=== PATIENT | female | born 1930 | race Caucasian/White ===

== ENCOUNTER 2016-07-31 11:58 | Emergency (ER) | payer MEDICARE, OTHER ==
[~2016-07-31] VITALS: Ht 172.7 cm; Wt 88.6 kg
[2016-07-31 12:24] VITALS: BP 122/46; PULSE 87; RESP 16; O2SAT 99
[2016-07-31] MEDS ORDERED: LISI-571 PO (12:33)
[2016-07-31] MEDS ORDERED: EYE VITAMINS PO (12:33)
[2016-07-31] MEDS ORDERED: NAPR220C11 PO (12:33)
--- NOTE | 2016-07-31 12:37 | ED.REPORT ---
HPI-Abd Pain F 40 and Over Date of Service Jul 31, 2016 ED Provider: Angelo Ochoa MD Pt is an 85 y/o female presenting to the ED with her daughter c/o intermittent abdominal pain which occurred early this morning. The patient was laying in bed and was awoken by pain which started in her low abdomen and radiated all the way to her throat with an associated acid taste which caused a burning sensation. Her pain is exacerbated by laying down. The patient had a bowl of soup and a potato for dinner last night. She c/o associated nausea, decreased appetite. She denies fever, chills, current abdominal pain, bloody stool, melena , CP, SOB, cough. She has no diagnosed history of GERD. The patient takes Aleve daily for general pain. Nursing Notes Stated Complaint: ABDOMINAL PAIN Chief Complaint: Female Abdominal Pain Nursing Notes Reviewed: Yes Allergies: Coded Allergies: Penicillins (Verified Allergy, Intermediate, Hives, 07/31/16) aspirin (Verified Allergy, Intermediate, Rash, 07/31/16) Scheduled ([otc eye vitamins]) Unknown Strength Unknown Dose PO BID Lisinopril (Lisinopril) 5 Mg Tablet 5 MG PO DAILY Naproxen Sodium (Aleve) 220 Mg Capsule 220 MG PO BIDAC Pantoprazole DR (Pantoprazole DR) 40 Mg Tablet.dr 40 MG PO DAILY General Time Seen by MD: 12:03 Chief Complaint Abdominal pain Hx Obtained From: Patient Arrived By: Walk-in Sudden in Onset?: No Onset Occurred: 5 - 8 hours ago Symptom Duration: Intermittent Progression since Onset: Resolved Location: : Diffuse Quality: Burning Severity: Current: No pain currently Severity: Maximum: Moderate Similar Sx Previous: No Past Medical History Past Medical History Hypertension Past Surgical History None reported Smoking History Never Smoker Social History Alcohol Use: Denies alcohol use Drug Use: Denies drug use Ambulatory Status Independent Review of Systems Constitutional: Denies: Chills, Fever Respiratory: Denies: Non-productive cough, Shortness of breath Cardiovascular: Denies: Chest pain GI: Reports: Abdominal pain, Nausea, Denies: Bloody/tarry stool, Diarrhea, Melena, Vomiting Complete sys rev & neg: except as marked. Physical Exam Vital Signs Vital Signs (First) Date Time Temp Pulse Resp B/P Pulse Ox O2 Delivery O2 Flow Rate FiO2 07/31/16 12:24 35.8 87 16 122/46 99 Room Air Initial VS: Reviewed Head / Eyes: Atraumatic, Normocephalic, PERRL ENT: Mucous membranes moist, Conjunctiva normal, No scleral icterus Neck: Supple, Full range of motion Extremities: Vascular intact, Neuro intact, No swelling, No tenderness Skin: Warm, Dry, No cyanosis Neurologic: Alert, Oriented, Nonfocal Psychiatric: Mood/affect normal, Behavior normal, Normal thought content General/Constitutional: Awake, Alert, No acute distress, Well appearing, Cooperative, Not toxic appearing Respiratory / Chest: Atraumatic, Breath sounds NL, Breath sounds = bilat, No respiratory distress, No rales, No rhonchi, No wheezing, No retractions, No stridor, No chest tenderness, No chest wall deformity, No crepitus Cardiovascular: Heart rate NL, Regular rhythm, Heart sounds NL, No gallop, No murmurs, No rubs, Cap refill not delayed, Peripheral circulation NL Symmetric pitting edema bilateral lower extremities extending to the knees Abdomen: Atraumatic, Soft, Non-tender, McBurney's non-tender, No guarding, No rebound, No distention, No palpable mass Tenderness/Guarding/Rebound: Negative: Tender epigastric Back: Full range of motion, Painless range of motion Interpretation & Diagnostics ECG Interpretation ECG Interpretation: Sinus rhythm rate 75 LAD RBBB No prior available for comparison Time: 13:33 Interpreted by: ED physician Normal ECG Interpretation: No acute ischemic changes Re-Eval/Medical Decision Med Decision/Clinical Course The patient is a remarkably healthy 85-year-old female presenting to the emergency department from urgent care where she is complained of epigastric abdominal pain that radiated up into her throat and was associated with metallic /burning sensation in her throat and mouth. This was reproducible with laying flat and resolved with sitting up. Here in the emergency department the patient is afebrile with stable vital signs and in no apparent distress. She reports that she is symptom-free with sitting up. The overall presentation is highly convincing for acid reflux. The fact that the pain was reproducible with laying flat and associated with acidic taste in the mouth is highly suggestive of acid reflux. The pain is not exertional in nature and the nature of the pain is not suggestive of acute coronary syndrome. EKG was obtained and interpreted by myself as documented above and demonstrated no acute ischemic changes. Insert normal chest x-ray. Here in the emergency department the patient was treated with PO pantoprazole and had no ongoing symptoms. Of note, she has been taking nonsteroidal anti-inflammatories and I have recommended she discontinue these medications. Abdominal examinations were completely benign without any guarding, rigidity or rebound. I do not feel that laboratory or imaging studies are indicated at this time. The patient will follow up with her primary care physician. Lifestyle and dietary modifications were discussed in detail. If this time I feel she is appropriate for discharge home. Follow- up and return precautions were reviewed in detail with the patient as well as her daughter and they verbalized understanding and agreement with the plan. Re-Evaluation/Progress : Time of Eval: 12:45 Patient Status: Condition resolved, Complete relief, Pain resolved Re-Evaluation/Progress Note: Pt rechecked. Informed pt of plan for treatment. Pt understands and agrees with plan for treatment. F/U instructions and RTER warnings given. All questions addressed. Counseled Regarding: Diagnosis, Need for follow-up, When/why to return to ED Discharge & Departure Primary Impression: Acid reflux Esophagitis presence: esophagitis presence not specified Qualified Code: K21.9 - Gastro-esophageal reflux disease without esophagitis Additional Impressions: Epigastric abdominal pain NSAID induced gastritis Disposition: Home Discharge Condition All VS Reviewed: Yes Condition: Stable Patient Instructions: Gastroesophageal Reflux Disease (ED) Additional Instructions: Thank you for seeking care at the emergency room. It is difficult for us to make definitive diagnoses in the ED but we believe that you are experiencing acid reflux. Our primary goal today in the ED was to evaluate you for any life-threatening conditions. Your evaluation was reassuring. Your physical exam and interview are extremely consistent with acid reflux disease. You will be discharged with a prescription for Omeprazole. Take this once daily to help with acid reflux. Please stop taking your Aleve and Vitamin B12 until you are seen by your primary care provider. Aleve is known to cause irritation of the stomach and may be exacerbating your symptoms. You can take Tylenol as needed for pain. Do not exceed 2,000 mg in one day. Do not eat within 2-3 hours prior to bedtime. Elevation of your head should help your symptoms. You should follow-up with your primary doctor in the next week. You have also been referred to a test hole driller. Your primary care doctor may recommend you get an endoscopy which would be performed by gastroenterology. You should return to the ED immediately if you develop fevers, vomiting, worsening abdominal pain, shortness of breath, chest pain, lightheadedness, weakness or any other concerning signs or symptoms. Thank you for letting us partake in your care today. Referrals: Laz Mccullough MD (PCP) Stephon Rahman MD Attestation Portions of this note were transcribed by Blu Dia. I, Dr. Ochoa personally performed the history, physical exam and medical decision-making; I reviewed and confirmed the accuracy of the information in the transcribed note. Signed by Dale Clemons, 07/31/16 - 1300 copies to: Laz Mccullough MD, Beck O MD Jul 31, 2016 12:37 BLU DIA Jul 31, 2016 12:38
[2016-07-31] MEDS ORDERED: PANT40TA3 PO (12:55)
[2016-07-31] MEDS ORDERED: Alum-Mag Hydrox-Simeth 30 mL Suspension PO ONE (12:55)
[2016-07-31] MEDS ORDERED: Pantoprazole 40 mg ER24 Tablet PO ONE (12:55)
[2016-07-31 14:16] VITALS: BP 126/52; PULSE 97; RESP 16; O2SAT 98
== END 2016-07-31 14:23 | disposition home or self-care (01) ==
LOC: SED 11:58
DX: K21.9 Gastro-esophageal reflux disease without esophagitis (principal); R10.13 Epigastric pain; K29.70 Gastritis, unspecified, without bleeding; I10 Essential (primary) hypertension; Z88.0 Allergy status to penicillin; Z88.6 Allergy status to analgesic agent
CPT/HCPCS: 93005; 99284; G0463

== ENCOUNTER 2016-08-04 16:49 | Emergency (ER) | payer MEDICARE, OTHER ==
[~2016-08-04 16:49] MED LIST: EYE VITAMINS PO; LISI-571 PO; NAPR220C11 PO; PANT40TA3 PO
[2016-08-04 17:03] VITALS: BP 166/77; PULSE 63; RESP 16; O2SAT 97
--- NOTE | 2016-08-04 18:04 | ED.REPORT ---
HPI-Abd Pain F 40 and Over Date of Service Aug 04, 2016 ED Provider: Airam Garcia MD The patient is an 85 year old female with history of hypertension who presents to the ED complaining of lower abdominal pain for the last 6 nights. She describes her pain as aching reports that her pain is relieved by sitting up and exacerbated by laying down. Associated symptoms of decreased appetite and a bad taste in her mouth (which has resolved). She was seen in the ED four days ago and diagnosed with acid reflux. She typically takes Aleve daily but has stopped after the onset of her symptoms. She denies nausea, vomiting, diarrhea, constipation, melena, hematochezia, dysuria, hematuria, fever, or any other symptoms at this time. Nursing Notes Stated Complaint: LOWER ABDOMINAL PAIN Chief Complaint: Female Abdominal Pain Nursing Notes Reviewed: Yes Allergies: Coded Allergies: Penicillins (Verified Allergy, Intermediate, Hives, 07/31/16) aspirin (Verified Allergy, Intermediate, Rash, 07/31/16) Scheduled ([otc eye vitamins]) Unknown Strength Unknown Dose PO BID Cephalexin (Keflex) 500 Mg Capsule 500 MG PO QID Lisinopril (Lisinopril) 5 Mg Tablet 5 MG PO DAILY Naproxen Sodium (Aleve) 220 Mg Capsule 220 MG PO BIDAC Pantoprazole DR (Pantoprazole DR) 40 Mg Tablet.dr 40 MG PO DAILY General Time Seen by MD: 17:59 Chief Complaint Abdominal pain Hx Obtained From: Patient Arrived By: Walk-in Sudden in Onset?: No Onset Occurred: 6 days ago Symptom Duration: Waxes and wanes Location: : Abdomen lower Quality: Painful Severity: Current: Mild Severity: Maximum: Moderate Recent Healthcare: No recent hospitalization, Recent doctor visit, Prior workup Similar Sx Previous: No Past Medical History Past Medical History Hypertension Past Surgical History None reported Smoking History Never Smoker Social History Alcohol Use: Denies alcohol use Drug Use: Denies drug use Ambulatory Status Independent Review of Systems Decreased appetite Constitutional: Denies: Chills, Fever Respiratory: Denies: Non-productive cough, Shortness of breath Cardiovascular: Denies: Chest pain GI: Reports: Abdominal pain, Denies: Constipation, Diarrhea, Hematochezia, Melena, Nausea, Vomiting Female: Denies: Dysuria, Hematuria Complete sys rev & neg: except as marked. Physical Exam Vital Signs Vital Signs (First) Date Time Temp Pulse Resp B/P Pulse Ox O2 Delivery O2 Flow Rate FiO2 08/04/16 17:03 35.3 63 16 166/77 97 08/04/16 21:37 Room Air Initial VS: Reviewed Head / Eyes: Atraumatic, Normocephalic, PERRL ENT: Mucous membranes moist, Conjunctiva normal, No scleral icterus Neck: Supple, Non-tender, Full range of motion Extremities: Vascular intact, Neuro intact, No swelling, No tenderness Skin: Warm, Dry, No cyanosis Neurologic: Alert, Oriented, Nonfocal Psychiatric: Mood/affect normal, Behavior normal, Normal thought content General/Constitutional: Awake, Alert, No acute distress Respiratory / Chest: Atraumatic, Breath sounds NL, Breath sounds = bilat, No respiratory distress Cardiovascular: Heart rate NL, Regular rhythm, Heart sounds NL, No gallop, No murmurs, No rubs Abdomen: Atraumatic Tenderness/Guarding/Rebound: Positive: Tender LLQ... (Mild) Easily reduced umbilical hernia Back: Atraumatic Mild bilateral CVA tenderness Interpretation & Diagnostics Lab Results Interpretation Result Diagram: 08/04/16183908/04/161839 Test 08/04/16 18:40 08/04/16 20:40 White Blood Count 8.6th/mm3 (3.8-10.1) Red Blood Count 3.20mil/mm3 (3.90-5.20) Hemoglobin 10.5g/dL (12.0-15.6) Hematocrit 31.3% (35.0-46.0) Mean Corpuscular Volume 97.8fL (81-100) Mean Corpuscular Hemoglobin 32.8pg (27.0-35.0) Mean Corpuscular Hemoglobin Concent 33.5% (32.0-37.0) Red Cell Distribution Width 12.9% (12.3-15.4) Platelet Count 326bil/L (150-400) Neutrophils (%) (Auto) 85.3% (40-74) Lymphocytes (%) (Auto) 7.5% (14-46) Monocytes (%) (Auto) 6.8% (4-12) Eosinophils (%) (Auto) 0.1% (0-5) Basophils (%) (Auto) 0.1% (0-3) Sodium Level 136mEq/L (134-144) Potassium Level 5.9mEq/L (3.5-5.2) Chloride Level 101mEq/L (97-108) Carbon Dioxide Level 21mmol/L (18-29) Blood Urea Nitrogen 40mg/dL (8-27) Creatinine 0.83mg/dL (0.57-1.00) Estimat Glomerular Filtration Rate 93mL/min (>59) Glucose Level 125mg/dL (60-99) Lactic Acid Level 0.9mmol/L (0.4-2.0) Calcium Level 9.5mg/dL (8.5-10.1) Magnesium Level 1.8mg/dL (1.6-2.6) Total Bilirubin 0.2mg/dL (0.0-1.2) Aspartate Amino Transf (AST/SGOT) 34U/L (0-50) Alanine Aminotransferase (ALT/SGPT) 17U/L (0-32) Alkaline Phosphatase 133U/L (25-165) Total Protein 7.1g/dL (6.4-8.4) Albumin 3.9g/dL (3.4-5.0) Lipase 76U/L (13-60) Urine Color Yellow (YELLOW) Urine Appearance Hazy (CLEAR,HAZY) Urine pH 5.0 (5.0-8.0) Urine Specific [place] 1.015 (1.003-1.035) Urine Protein Negativemg/dL (NEG,TRACE) Urine Glucose (UA) Negativemg/dL (NEGATIVE) Urine Ketones Negativemg/dL (NEGATIVE) Urine Occult Blood Negative (NEGATIVE) Urine Nitrite Negative (NEGATIVE) Urine Bilirubin Negative (NEGATIVE) Urine Urobilinogen Normalmg/dL (NORMAL) Urine Leukocyte Esterase Moderate (NEGATIVE) Urine RBC 0-2/hpf (0-2) Urine WBC 6-10/hpf (0-5) Urine Epithelial Cells None/hpf (NONE-MOD) Urine Crystals None seen (NONE SEEN) Urine Bacteria Moderate/hpf (NONE-FEW) Urine Hyaline Casts None/lpf (NONE) Urine Granular Casts None seen (NONE SEEN) Urine Waxy Casts None seen (NONE SEEN) Urine Red Blood Cell Casts None seen (NONE SEEN) Urine White Blood Cell Casts None seen (NONE SEEN) Urine Mucus Present (None Seen) Urine Trichomonas None seen (NONE SEEN) Urine Yeast None (NONE SEEN) Urinalysis Comment None Urine Culture Reflexed Indicated CT Abd / Pelvis Interpretation IMPRESSION: No visualized etiology for left-sided abdominal pain. Large midline fat containing ventral hernia. Colonic diverticulosis. Appendix not visualized although no definite right lower quadrant inflammatory changes. Recommend clinical correlation. Additional chronic and incidental findings as above. Dictated by: Justino Hope M.D. on 08/04/2016 at 20:14 Approved by: Justino Hope M.D. on 08/04/2016 at 20:22 Study type: Abdominal CT IV contrast Interpretation / Wet Read by: Interpret - Radiologist Re-Eval/Medical Decision Med Decision/Clinical Course 85-year-old female here with generalized abdominal pain which is worse in bilateral lower quadrants and radiates to her back. Differential diagnosis includes but is not limited to urinary tract infection versus pyelonephritis versus pancreatitis kidney stone. CT scan is unremarkable. Patient does have evidence of slight urinary tract infection. She was given a dose of Keflex in the emergency department and discharged with same. Her lipase was also very slightly elevated at 76. I do not feel she requires admission for this level of pancreatitis, but have given her very strict diet orders for simple fluids, nonfatty, clears, and advance as tolerated. She was given a prescription for Keflex and advised to follow up as soon as possible with her primary care physician. She is amenable to discharge at this time. Source of Hx: Old records Re-Evaluation/Progress #1: Time of Eval: 20:39 Re-Evaluation/Progress Note: Rechecked the patient to discuss preliminary labortatory and imaging results. Re-Evaluation/Progress #2: Time of Eval: 21:09 Re-Evaluation/Progress Note: Rechecked the patient. Discussed diagnosis and plan for discahrge. The patient understands and agrees to the plan. Follow-up instructions and RTER warnings given. All questions addressed. Discharge & Departure Primary Impression: Pancreatic abnormality Additional Impression: Urinary tract infection Urinary tract infection type: site unspecified Hematuria presence: with hematuria Qualified Code: N39.0 - Urinary tract infection, site not specified Disposition: Home Discharge Condition All VS Reviewed: Yes Condition: Stable Patient Instructions: Pancreatitis (ED) Additional Instructions: Your emergency department visit today included a consultation, physical examination, laboratory testing, and imaging studies. Your lab results indicate that you have a very mild case of pancreatitis and a urinary tract infection. I have given you the first dose of your antibiotics in the emergency room tonight. I have prescribed you a course of antibiotics to begin taking tomorrow , please take this as directed. To help with your pancreatitis, it is important that you eat a very bland diet ( such as baked potatoes without butter and soup broth) and avoid heavy, fried foods. In addition, please be sure to drink plenty of clear liquids such as Gatorade/Pedialyte (watered down by half) to maintain your hydration. This will also help with your UTI. Follow-up with your primary care doctor as scheduled. Be sure to mention your visit tonight. Please return to the emergency room if you develop fever, worsening abdominal pain, or any new/worsening symptoms. Thank you for coming in [facility], it was a pleasure to partake in your care. Referrals: Laz Mccullough MD (PCP) Scribe Attestation Portions of this note were transcribed by Robert Kincaid. I, Dr. Garcia, personally performed the history, physical exam, and medical decision-making; I reviewed and confirmed the accuracy of the information in the transcribed note. Signed by: [Scribe first and last name], Scribe, [Date] and [Time]. copies to: Laz Mccullough MD, Rebecca A MD Aug 04, 2016 18:04 ROBERT KINCAID Aug 04, 2016 18:17
[2016-08-04] MEDS ORDERED: Pantoprazole 4 mg/mL 10 mL Inj IVPUSH ONE (18:15)
[2016-08-04 18:50] LABS: BASOPHILS % (AUTO) 0.1 % (0-3); EOSINOPHILS % (AUTO) 0.1 % (0-5); MONOCYTES % (AUTO) 6.8 % (4-12); Mean Corpuscular Hemoglobin 32.8 pg (27.0-35.0); Mean Corpuscular Volume 97.8 fL (81-100); NEUTROPHILS % (AUTO) 85.3 % (40-74); Platelet Count 326 bil/L (150-400)
[2016-08-04 19:10] LABS: Magnesium 1.8 mg/dL (1.6-2.6)
--- NOTE | 2016-08-04 20:23 | DRSVH ---
PROCEDURE: CT ABDOMEN AND PELVIS WITH CONTRAST ([id number]) INDICATIONS: LLQ pain TECHNIQUE: After the administration of intravenous contrast, 5 mm thick sections acquired from the diaphragm to the symphysis. 5 mm coronal and sagittal reformats were acquired. For radiation dose reduction, the following was used: automated exposure control, adjustment of mA and/or kV according to patient siz e. COMPARISON: None. FINDINGS: Image quality: Excellent. ABDOMEN: Lung bases: Scarring/atelectasis in the right lung base. Heart mildly enlarged. Solid organs: Nonspecific subcentimeter hepatic hypodensity in the right lobe on image 22. Otherwise liver and spleen are normal in size and enhancement. Gallbladder unremarkable. Biliary system is no n dilated. Pancreas enhances normally. No adrenal nodules. Bilateral renal cortical scarring and at rophy. Presumed bilateral 1 cm or less renal cysts only these are too small to characterize definitiv elvia and technically indeterminate Peritoneum and bowel: Bowel loops demonstrate normal wall thickness and caliber. No free fluid or a ir. The appendix is not well-visualized. No definite right lower quadrant inflammatory changes. The rectum is grossly unremarkable. Scattered colonic diverticuli without evidence of acute complication Nodes and vessels: No retroperitoneal or mesenteric adenopathy by size criteria. Aorta and inferior vena cava are normal in size. Miscellaneous: Large fat containing midline ventral hernia measuring 5.2 cm. PELVIS: Genitourinary: Bladder wall thickness is normal. Right posterior bladder diverticulum. Presumed peter cified uterine fibroids Miscellaneous: No inguinal hernias or adenopathy. Bones: No suspicious bony lesions. Diffuse osteopenia. Severe bilateral hip joint degeneration and multilevel discogenic changes. Age indeterminate mild anterior wedging of L1 IMPRESSION: No visualized etiology for left-sided abdominal pain. Large midline fat containing ventral hernia. Colonic diverticulosis. Appendix not visualized although no definite right lower quadrant inflammatory changes. Recommend cli nical correlation. Additional chronic and incidental findings as above. Dictated by: Justino Hope M.D. on 08/04/2016 at 20:14 Approved by: Justino Hope M.D. on 08/04/2016 at 20:22
[2016-08-04 20:52] LABS: APPEARANCE,URINE HAZY (CLEAR,HAZY); COLOR,URINE YELLOW (YELLOW); OCCULT BLOOD,URINE NEGATIVE (NEGATIVE); UROBILINOGEN,URINE NORMAL (NORMAL)
[2016-08-04] MEDS ORDERED: CEPH-512 PO (21:11)
[2016-08-04 21:37] VITALS: BP 157/59; PULSE 66; RESP 18; O2SAT 96
== END 2016-08-04 21:41 | disposition home or self-care (01) ==
LOC: SED 16:49
DX: K86.9 Disease of pancreas, unspecified (principal); N39.0 Urinary tract infection, site not specified; B96.20 Unspecified Escherichia coli [E. coli] as the cause of diseases classified elsewhere; K21.9 Gastro-esophageal reflux disease without esophagitis; I10 Essential (primary) hypertension; Z88.0 Allergy status to penicillin; Z88.8 Allergy status to other drugs, medicaments and biological substances
CPT/HCPCS: 36415; 74177; 80053; 81000; 83605; 83690; 83735; 85025; 87086; 87088; 87186; 96374; 99285; Q9967

== ENCOUNTER 2016-08-06 20:10 | Observation (INO) | payer MEDICARE, OTHER ==
[2016-08-06] VITALS (7 sets, daily range): BP systolic 92–111; BP diastolic 32–50; PULSE 35–72; RESP 14–20; O2SAT 98–100
[~2016-08-06] VITALS: Ht 177.8 cm; Wt 73.8 kg
[~2016-08-06 20:10] MED LIST changes: +CEPH-512 PO
--- NOTE | 2016-08-06 20:21 | ED.REPORT ---
HPI-Dyspnea / Wheezing Date of Service Aug 06, 2016 ED Provider: Dr. Nic Peña M.D. An 85 year old female with a medical history including hypertension, GERD, pancreatitis, and UTI presents to the ED accompanied by her daughter with shortness of breath onset just prior to arrival. The patient also reports substernal chest pain exacerbated with deep breathing, with radiation to her abdomen. EMS found her hypotensive (82/52) and she was given fluids en route. The patient's daughter reports that her mental status has been declining over the past week. She was seen in the ED on 07/31/16 with GERD and 08/04/16 with pancreatitis and UTI. Nursing Notes Stated Complaint: SHORTNESS OF BREATH Nursing Notes Reviewed: Yes Allergies: Coded Allergies: Penicillins (Verified Allergy, Intermediate, Hives, 07/31/16) aspirin (Verified Allergy, Intermediate, Rash, 07/31/16) Scheduled ([otc eye vitamins]) Unknown Strength Unknown Dose PO BID Cephalexin (Keflex) 500 Mg Capsule 500 MG PO QID Lisinopril (Lisinopril) 5 Mg Tablet 5 MG PO DAILY Naproxen Sodium (Aleve) 220 Mg Capsule 220 MG PO BIDAC Pantoprazole DR (Pantoprazole DR) 40 Mg Tablet.dr 40 MG PO DAILY General Time Seen by MD: 20:21 Chief Complaint Shortness of breath Hx Obtained From: Patient, Daughter, EMS Arrived By: Ambulance Sudden in Onset?: Yes Onset Occurred: Just prior to arrival Symptom Duration: Since onset Location: : Substernal Quality: Painful Severity: Current: Moderate Severity: Maximum: Moderate Associated with: Reports: Chest pain, Denies: Fever Exacerbated by: Deep breath Pertinent Negative: Relieved by nothing Recent Healthcare: Recent doctor visit Similar Sx Previous: No Past Medical History Past Medical History Hypertension GERD UTI Pancreatitis Past Surgical History None reported Smoking History Never Smoker Social History Alcohol Use: Denies alcohol use Drug Use: Denies drug use Other Social History: Good social support, Lives with children (Son) Ambulatory Status Independent Review of Systems Review of Systems Note: + hypotension (82/52), declining mental status per daughter Constitutional: Denies: Fever Respiratory: Reports: Shortness of breath, Denies: Non-productive cough Cardiovascular: Reports: Chest pain Complete sys rev & neg: except as marked. GI: Reports: Abdominal pain, Denies: Vomiting Physical Exam Initial Vital Signs Vital Signs (First) Date Time Temp Pulse Resp B/P Pulse Ox O2 Delivery O2 Flow Rate FiO2 08/06/16 20:22 35.9 66 18 107/50 98 Room Air 08/06/16 21:04 2 Initial VS: Reviewed Head / Eyes: Atraumatic, Normocephalic ENT: Conjunctiva normal, No scleral icterus Skin: Warm, Dry, No cyanosis Neurologic: Alert, Oriented Psychiatric: Mood/affect normal, Behavior normal, Normal thought content General/Constitutional: Awake, Alert, No acute distress Neck: Supple, Full range of motion Respiratory / Chest: Breath sounds NL, Breath sounds = bilat, No respiratory distress Cardiovascular: Heart rate NL, Regular rhythm, Heart sounds NL Interpretation & Diagnostics Lab Results Interpretation Result Diagram: 08/06/16202308/06/162023 Test 08/06/16 20:24 08/06/16 21:24 White Blood Count 10.3th/mm3 (3.8-10.1) Red Blood Count 3.43mil/mm3 (3.90-5.20) Hemoglobin 11.2g/dL (12.0-15.6) Hematocrit 33.5% (35.0-46.0) Mean Corpuscular Volume 97.7fL (81-100) Mean Corpuscular Hemoglobin 32.7pg (27.0-35.0) Mean Corpuscular Hemoglobin Concent 33.4% (32.0-37.0) Red Cell Distribution Width 13.0% (12.3-15.4) Platelet Count 304bil/L (150-400) Neutrophils (%) (Auto) 86.0% (40-74) Lymphocytes (%) (Auto) 7.5% (14-46) Monocytes (%) (Auto) 5.7% (4-12) Eosinophils (%) (Auto) 0.4% (0-5) Basophils (%) (Auto) 0.1% (0-3) Sodium Level 130mEq/L (134-144) Potassium Level 4.7mEq/L (3.5-5.2) Chloride Level 94mEq/L (97-108) Carbon Dioxide Level 19mmol/L (18-29) Blood Urea Nitrogen 43mg/dL (8-27) Creatinine 1.42mg/dL (0.57-1.00) Estimat Glomerular Filtration Rate 50mL/min (>59) Glucose Level 109mg/dL (60-99) Calcium Level 9.7mg/dL (8.5-10.1) Magnesium Level 1.9mg/dL (1.6-2.6) Total Bilirubin 0.2mg/dL (0.0-1.2) Aspartate Amino Transf (AST/SGOT) 29U/L (0-50) Alanine Aminotransferase (ALT/SGPT) 18U/L (0-32) Alkaline Phosphatase 155U/L (25-165) Troponin T 0.027ug/L (0.0-0.011) Total Protein 7.0g/dL (6.4-8.4) Albumin 3.8g/dL (3.4-5.0) Lipase 78U/L (13-60) ECG Interpretation ECG Interpretation: Sinus rhythm rate 73 RBBB FAFB 1st degree AV block Time: 20:26 Interpreted by: ED physician Rhythm Strip Interpretation : Rhythm Strip Interpretation: Mobitz I second degree AV block Time: 20:56 Rhythm Strip Interpretation: Interpreted by me X-Ray Chest Interpretation Chest Xray Interpretation: IMPRESSION: No acute disease Dictated by: Justino Hope M.D. on 08/06/2016 at 21:05 View: Portable, 1 view Interpretation / Wet Read by: Interpret - Radiologist Re-Eval/Medical Decision Source of Hx: Old records Re-Evaluation/Progress : Time of Eval: 22:13 Patient Status: Condition improved Re-Evaluation/Progress Note: Discussed with patient and her daughter x-ray and lab results, diagnosis, and plan for admit. Patient agrees with plan for care and all questions were addressed. Consultation : Referral / Consult Name: Amari Burrell MD Consulted With: Hospitalist Call Returned at: 22:22 Inclusion Teacher: Agrees with eval, Agrees with plan, Accepts admit Counseled Regarding: Diagnosis, Lab results, Need for admission Discharge & Departure Impression: Primary Impression: Dyspnea Dyspnea type: unspecified Qualified Code: R06.00 - Dyspnea, unspecified Additional Impressions: Bradycardia Acute kidney injury Hypotension Hypotension type: unspecified hypotension type Qualified Code: I95.9 - Hypotension, unspecified Disposition: ADMITTED TO HOSPITAL Discharge Condition All VS Reviewed: Yes Condition: Stable Referrals: Laz Mccullough MD (PCP) Scribe Attestation Portions of this note were transcribed by Tanya Jaramillo. I, Dr. Peña, personally performed the history, physical exam, and medical decision-making; I reviewed and confirmed the accuracy of the information in the transcribed note. Signed by: Dale Dunne, 08/06/2016, 22:50 copies to: Laz Mccullough MD, Kirk H MD Aug 06, 2016 20:21 TANYA JARAMILLO Aug 06, 2016 20:24
[2016-08-06 20:28] LABS: BASOPHILS % (AUTO) 0.1 % (0-3); EOSINOPHILS % (AUTO) 0.4 % (0-5); MONOCYTES % (AUTO) 5.7 % (4-12); Mean Corpuscular Hemoglobin 32.7 pg (27.0-35.0); Mean Corpuscular Volume 97.7 fL (81-100); Platelet Count 304 bil/L (150-400)
[2016-08-06 20:52] LABS: TROPONIN T 0.027 ug/L (0.0-0.011)
[2016-08-06 21:03] LABS: Magnesium 1.9 mg/dL (1.6-2.6)
--- NOTE | 2016-08-06 21:07 | DRSVH ---
PROCEDURE: X-RAY CHEST ONE VIEW, PORTABLE ([id number]) INDICATIONS: dyspnea TECHNIQUE: One view of the chest was acquired. COMPARISON: None. FINDINGS: Surgical changes and devices: None. Lungs and pleura: No pleural effusions or pneumothorax. Lungs are clear. Mediastinum: Mediastinal contours appear normal. Heart size is normal. Bones and chest wall: No suspicious bony lesions. Overlying soft tissues appear unremarkable. IMPRESSION: No acute disease Dictated by: Justino Hope M.D. on 08/06/2016 at 21:05 Approved by: Justino Hope M.D. on 08/06/2016 at 21:05
[2016-08-06] MEDS ORDERED: Ondansetron 2 mg/mL 2 mL Inj IVPUSH PRN (23:05)
[2016-08-06] MEDS ORDERED: Alum-Mag Hydrox-Simeth 30 mL Suspension PO PRN (23:05)
[2016-08-07] VITALS (9 sets, daily range): BP systolic 83–105; BP diastolic 42–52; PULSE 40–81; RESP 16–18; O2SAT 94–99
[2016-08-07] MEDS ORDERED: Polyethylene Glycol (PEG) 17 Gm Powder PO PRN (00:45)
[2016-08-07] MEDS ORDERED: Alum-Mag Hydrox-Simeth 30 mL Suspension PO PRN (00:45)
[2016-08-07] MEDS ORDERED: Ondansetron 2 mg/mL 2 mL Inj IVPUSH PRN (00:45)
[2016-08-07] MEDS ORDERED: TRIA1TAB3 PO (00:52)
[2016-08-07] MEDS ORDERED: ACET325T51 PO (00:52)
[2016-08-07] MEDS: 0.9% Sodium Chloride 1,000 ML IV SCH ×2 (01:06→10:45)
[2016-08-07 01:32] LABS: BASOPHILS % (AUTO) 0.1 % (0-3); EOSINOPHILS % (AUTO) 0.2 % (0-5); MONOCYTES % (AUTO) 8.8 % (4-12); Mean Corpuscular Hemoglobin 32.7 pg (27.0-35.0); Mean Corpuscular Volume 98.5 fL (81-100); Platelet Count 233 bil/L (150-400)
--- NOTE | 2016-08-07 01:55 | PCM.HPMED ---
Subjective Date of Service Aug 07, 2016 Primary Provider: Admitting Physician: Amari Burrell MD Primary Care Physician: Laz Mccullough MD Attending Physician: Amari Burrell MD Admit Status: From the Emergency Department Chief Complaint: Shortness of breath onset 1900 on 08/06/2016 History of Present Illness: Cate is a pleasant 85-year-old female with history of HTN, on lisinopril 5 mg tablets by mouth daily, GERD, on pantoprazole 40 mg tablets daily, recent diagnosis of pancreatitis and UTI on 08/04/2016 in the ED (patient placed on by mouth Keflex), who returned to the ED today complaining with acute onset shortness of breath at 1900 on 08/06/2016. Patient was reportedly bradycardic and hypotensive with a blood pressure of 82/52 when found by EMS. She was given IV fluids at that time. Patient is accompanied by her daughter who states patient is normally relatively healthy however over the past week patient 's level of mentation has decreased. Reportedly patient was having some chest pain with deep breathing while in the emergency department, however during the admission patient denied any sort of chest pain or abdominal pain. Patient heart rate continues to show bradycardia with rate in 40s, however patient is asymptomatic. Of note patient describes 3 episodes of diarrhea in the past 24 hours. Patient denied chest pain, nausea, vomiting, fever, abdominal pain, constipation, dysuria. In the ED,: Vital signs temperature 5.9, pulse 66, respiratory rate 18, blood pressure 107/50, 98% on room air, Repeat vitals heart rate 61, respiratory rate 20, blood pressure 95/45, O2 is 99 % on 2 L. Hemogram: the WBC 10.3, hemoglobin 11.2, hematocrit 33.5, platelets 304, neutrophils 86%. Chemistry panel: Sodium 1:30, chloride 94, potassium 4.7, CO2 19, BUN 43, creatinine 1.42, glucose 109, magnesium 1.9, troponin 0.027, lipase 78H Chest x-ray in the ED showed no acute cardiopulmonary process. EKG showed sinus rhythm of 73, right bundle branch block, anterior fascicular block, first-degree AV block Review of Systems: A comprehensive review of systems was conducted and was negative except as mentioned in history of present illness. Allergies Coded Allergies: Penicillins (Verified Allergy, Intermediate, Hives, 07/31/16) aspirin (Verified Allergy, Intermediate, Rash, 07/31/16) Home Medications Keflex 500 mg by mouth 4 times a day for UTI diagnosed on 08/04/2016 Lisinopril [address] 40 mg tablet daily Triamterene/HCTZ 37.5 mg daily PMH Hypertension Gastroesophageal reflux disease UTI diagnosed 08/04/2016 Mild case of pancreatitis diagnosed 2016 Surgical History None reported Family History Noncontributory Social History Hx Alcohol Use: No Hx Substance Use: No Hx Tobacco Use: No Smoking Status: Never Smoker Living Arrangement: with Family (daughter Lupe razo [phone]) Exam Vital Signs Vital Sign - Last Date Time Temp Pulse Resp B/P Pulse Ox O2 Delivery O2 Flow Rate FiO2 08/06/16 23:42 Supplement Oxygen 08/06/16 23:35 61 08/06/16 23:25 20 95/45 2.00 98 08/06/16 23:07 99 08/06/16 20:22 35.9 Exam General: Patient appears stated age, difficult of hearing, resting, comfortably in bed, in no acute distress, HEENT: Normocephalic, atraumatic, eyes PERRLA, EOMI, neck soft/supple, no adenopathy, no JVD, no masses, no nuchal signs, throat no erythema, dentures upper/lower, mucous membranes moist Lungs: Lungs clear all melo anterior and posterior, no crackles no wheezes no rhonchi Heart: Distant and difficult to auscultate Abdomen: Soft nontender active bowel tones, no organomegaly, nondistended, Genitourinary: No suprapubic tenderness, Extremities: Lower extremities are swollen, no pitting edema Neurologic: Grossly neurologically intact, speaking in full sentences, Skin: Stream equal to the touch and dry Lab and Diagnostics Result Diagram: 08/06/16202308/06/162023 X-Rays, CTs and MRIs Date of Service: 08/06/162012 PROCEDURE: X-RAY CHEST ONE VIEW, PORTABLE ([id number]) INDICATIONS: dyspnea TECHNIQUE: One view of the chest was acquired. COMPARISON: None. FINDINGS: Surgical changes and devices: None. Lungs and pleura: No pleural effusions or pneumothorax. Lungs are clear. Mediastinum: Mediastinal contours appear normal. Heart size is normal. Bones and chest wall: No suspicious bony lesions. Overlying soft tissues appear unremarkable. IMPRESSION: No acute disease Dictated by: Justino Hope M.D. on 08/06/2016 at 21:05 Approved by: Justino Hope M.D. on 08/06/2016 at 21:05 Assessment & Plan Cate is a pleasant 85-year-old female with history of HTN, on lisinopril 5 mg tablets by mouth daily, GERD, on pantoprazole 40 mg tablets daily, recent diagnosis of pancreatitis and UTI on 08/04/2016 in the ED (patient placed on by mouth Keflex), who returned to the ED today complaining with acute onset shortness of breath at 1900 on 08/06/2016, and with AMS for past week. Patient was reportedly bradycardic and hypotensive with a blood pressure of 82/52 when found by EMS. Patient was admitted secondary to AMS, shortness of breath and bradycardia. # Encephalopathy, acute, present on admission - Patient's daughter reporting that patient seems altered with regards to her mentation over the past week. Of note patient was recently diagnosed with urinary tract infection, urine culture grew pansensitive Escherichia coli, and patient was placed on Keflex # SOB, present on admission, - Temperature 5.9, pulse 66, respiratory rate 18, blood pressure 107/50, 98% on room air, - Patient came in with shortness of breath and difficulty breathing however is resting comfortably in bed speaking full sentences at the time of exam. He denies chest pain - Physical exam lungs clear bilaterally on melo, no crackles, lower extremity swelling apparently chronic. - Vitals at time of admission - O2 sats 100% on 2 L nasal cannula - Chest x-ray no acute cardiopulmonary process - D Dimer now # Acute Kidney Injury, present on admission - Baseline creatinine 0.83 on 08/04/2016 - BUN 43, Creatinine 1.42, Troponin 0.027 - Volume repletion with IV NS - Avoid nephrotoxic agents - Transthoracic Echocardiogram # Hypotension, present on admission, active - Blood pressure low of 93/52 - We will start IV fluids normal saline 100 mL per hour given blood pressure and acute kidney injury # Acute Urinary Tract Infection, POA - Patient was diagnosed in ED on 08/04/2016 with pansensitive Escherichia coli on culture and placed on Keflex - We will continue outpatient Keflex 500 mg by mouth 4 times a day # Bradycardia with First-degree AV block, present admission, active - EKG in the ED showed sinus rhythm, rate of 73, with right bundle branch block , anterior fascicular block, and first-degree AV block. - Patient has no history of pacemaker - Nurse to notify if patient heart rate below 50 and patient symptomatic. - We will plan to give atropine if patient symptomatic. - Would recommend cardiac consult in a.m. # Anemia, chronicity unknown, present on admission - H/H 11.2/33.5, MCV 97% - She reports remote history of gastric ulcers. - We will hold on any NSAIDs - We will continue to monitor with CBC # Leukocytosis, present on admission, active - Likely secondary to resolving urinary tract infection patient currently on oral antibiotics. - White blood cells 10.3, neutrophils 86% - Continue to monitor with CBC # Acute diarrhea, present on admission - C. difficile Stool PCR Chronic problems Hypertension, - Hold lisinopril 5 mg by mouth daily secondary to acute kidney injury GERD, - Home pantoprazole 40 mg daily Disposition: Admitted to in patient service with expected length of stay greater than 2 days, secondary to severity of presenting symptoms, treatment plan, complexity of clinical work up, and risk of adverse events. CODE STATUS: Full PCP: Dr. Mccullough DPOA: Daughter Lupe Razo [phone] Pain Evaluation: Adequate Pain Control VTE Prophylaxis: Sub-Q Heparin (Unfractionated) VTE Mechanical Devices: Intermittant Pneumatic CD Resuscitation Status: CPR: Attempt Resuscitation Attending Statement The patient was seen and examined together with Dr. Garcia on 08/06 and I agree with the history, exam and plan as outlined in the note above. Terrence Garcia DO Aug 07, 2016 01:55 Amari Burrell MD Aug 07, 2016 01:58 The patient was seen and examined together with Dr. Garcia on 08/06 and I agree with the history, exam and plan as outlined in the note above. Terrence Garcia DO Aug 07, 2016 01:55 Amari Burrell MD Aug 07, 2016 01:58
--- NOTE | 2016-08-07 03:36 | NUR ---
Admit Pt admitted to room 2030 at around 2330, report from ED RN, pt appeared in no distress, A&Ox3, denied any pain or symptoms from hypotension/bradycardia. See vitals. Pt very cold and could not get temp at time. MD aware. Daughter at bedside helped w/ admission questions. Med rec done through family interview, pt list, ext med hx, and discharge med instructions from recent ED visit. Daughter confirmed pt continues Keflex. MD at bedside to assess pt. Ongoing care.
--- NOTE | 2016-08-07 03:43 | NUR ---
Cardiac When first admitted to [facility] pt looked to be intermittently in 2nd degree block and intermittently SR 60s w/ IVCD, but shortly after arriving to floor, television news producer reported pt's tele bradycardic w/ rate at about 40 consistently. MD in room at time and made aware. Later MD updated that pt has remained with rate in low 40s. Pt has not reported any symptoms with this, appears to be sleeping comfortably. Last BP 92/52, NS fluids running per orders. Pt maintained bedrest d/t tele. Addendum: 08/07/16 at 0635 by EMMANUELLE FRAIRE RN Per ED report pt SR 70s w/ RBBB and intermittently in 2nd degree w/ rate as low as 35. This shift pt remains w/ rate in 40s, w/ dropped QRS complexes. aware. Additional ECG in chart. Pacer pads on pt. Pt asymptomatic
[2016-08-07] MEDS: Pantoprazole 40 mg ER24 Tablet PO SCH (08:38)
[2016-08-07] MEDS: Heparin 5,000 Unit/mL Inj SUBQ SCH ×2 (08:39→16:30)
--- NOTE | 2016-08-07 12:52 | NUR ---
Case Management: ROBERTS delivered to pt. and daughter, at bedside. Original placed in chart. Copy left at bedside. Alanis Landaverde RN
--- NOTE | 2016-08-07 14:24 | NUR ---
spiritual care:pt request brief introductory visit. pt enjoying family members. will plan to follow
--- NOTE | 2016-08-07 15:31 | NUR ---
Hypotension Pt hypotensive, SBP 80s. Pt denied dizziness or feeling faint. MD aware.
--- NOTE | 2016-08-07 16:05 | DRSVH ---
Merged With [facility] [address] [place] [address] Echocardiogram Report Name: GOLDEN QUIGLEY Date: 08/07/2016 Height: 68 in Hospital Exam Location: [facility] Weight: 15 6 lb Gender: Female BSA: 1.8 m2 : 1930 Age: 85 yrs BP: 105/50 mmHg Reason For Study: SOB, EDEMA, BRADYCARDIA Ordering Physician: HOSPITALIST [facility] Performed By: Luis Kim Referring Physician: EMELYN MEDRANO Interpretation Summary 1. Normal left ventricular size with mild proximal septal thickening and normal systolic function with an estimated EF of 65 to 70% 2. Normal right ventricular systolic function. The estimated right atrial pressure is low normal 3. No evidence for significant valvular pathology There is no old study for comparison Procedure: A two-dimensional transthoracic echocardiogram with color flow and Doppler was performed. The study quality was technically adequate. There is no prior echocardiogram noted for this patient. Left Ventricle: The left ventricle is normal in size. There is normal left ventricular wall thickness. Proximal septal thickening is noted. The ejection fraction is estimated to be 65-70%. No obvious wall motion abnormalities. Right Ventricle: The right ventricle is not optimally visualized to accurately assess the size. The right ventricular systolic function is normal. Atria: The left atrial size is normal. The right atrium is mildly dilated. No color doppler evidence for an ASD. Mitral Valve: The mitral valve leaflets appear borderline thickened, but open well. There is moderate mitral annular calcification. There is trace mitral regurgitation. Aortic Valve: The aortic valve is trileaflet. The aortic valve opens well. There is mild aortic regurgitation. Tricuspid Valve: The tricuspid valve leaflets are thin and pliable. There is mild tricuspid regurgitation. The right ventricular systolic pressure is estimated at 26 mmHg assuming a right atrial pressure of 3 mm Hg. Pulmonic Valve: The pulmonic valve leaflets are thin and pliable; valve motion is normal. There is mild pulmonic regurgitation. Great Vessels: The aortic root is normal size. The ascending aorta is mildly enlarged. The ascending aorta is dilated at 3.8 cm. The pulmonary artery is normal size. The IVC is of normal diameter and collapses greater than 50% with a sniff. This suggests a low right atrial pressure of 3 mm Hg. Pericardium/ Pleura There is no pericardial effusion. There is no pleural effusion. MMode/2D Measurements & Calculations LVIDd: 3.8 cm RA long axis LVOT diam LVIDs: 3.1 cm LA A2 area: 15.4 cm FS: 18.0 % LA A4 area: 18.8 cm RA area AoV Opening EPSS: 0.28 cm LA length (vol): 5.2 cm IVSd: 1.1 cm LA vol: 47.3 ml : 19.5 cm Ao root diam LVPWd: 0.76 cm LA vol index RA vol : 57.7 ml asc Aorta : 25.7 ml/m2 RA Diam: 3.8 cm : 31.4 mm2 LV womack. diameter/BSA LV sys. diameter/BSA RVD1 (basal) TAPSE: 3.3 cm (cm/m^2): 2.0 (cm/m^2): 1.7 Doppler Measurements & Calculations Ao V2 max MV E max raymundo MV E/A: 1.5 TR max raymundo : 111.7 cm/sec : 115.5 cm/sec Med Peak E' Raymundo : 240.5 cm/sec Ao max P.0 mmHg MV A max raymundo TR max PG Ao mean P.2 mmHg : 79.4 cm/sec E/E' med: 11.1 : 23.1 mmHg LVOT Max Raymundo Lat Peak E' Raymundo PA V2 max : 92.8 cm/sec : 75.4 cm/sec MARY(I,D): 2.9 cm E/E' lat: 10.4 PA mean PG sev ratio: 0.94 E/e' average : 1.3 mmHg MV dec time: 0.19 sec Ao V2 mean LV V1 max PG PA V2 mean : 87.0 cm/sec : 54.3 cm/sec Ao V2 VTI: 23.8 cm LV V1 VTI: 22.4 cmPA pr(Accel) MARY(V,D): 2.6 cm2 : 24.5 mmHg MARY indexed to BSA (cm^2/m^2): 1.6 Reading Physician:04:04 PM
[2016-08-07] MEDS ORDERED: Heparin 25K Unit/500mL 0.45 NS 25,000 UNIT in IV Premix 1 EACH IV SCH (17:35)
--- NOTE | 2016-08-07 17:38 | DRSVH ---
PROCEDURE: US VENOUS LEG DUPLEX BILATERAL INDICATIONS: look for DVT, elevated d-dimer TECHNIQUE: Real-time imaging, as well as color and pulse Doppler interrogation, were performed of the deep veins of both legs from the inguinal ligament to the popliteal fossa. COMPARISON: None. FINDINGS: The deep veins are normally compressible, and free of intraluminal thrombus. Color and pu lse Doppler demonstrate normal phasic intravascular flow. There is normal augmentation response to d istal compression maneuver. IMPRESSION: 1. No evidence of deep venous thrombosis in the right or left lower extremity. Dictated by: Eber Turk M.D. on 08/07/2016 at 17:35 Approved by: Eber Turk M.D. on 08/07/2016 at 17:36
--- NOTE | 2016-08-07 17:50 | NUR ---
Social Work Note: Initial Assessment Data& Assessment: EMR reviewed. SW met with pt and pt daughter at bedside to discuss discharge planning, SW role explained. SW provided phone number on pt white board. Cate Ponce is a 85 year old female under observation beginning on 08/06/2016 for dyspnea and bradycardia. Pt has Medicare and combined insurance [place] Supplement. Pt sees Laz Mccullough MD for primary care. Pt lives in [facility] with her son in a mobile home with ramp. Pt is wheelchair bound at baseline for ambulation but is able to transfer independently and complete all ADL's independently. Pt does not have HH or SNF hx. Pt does not have LTC insurance or VA benefits. Pt does have a living will completed, pt daughter plans to look for it when she returns to the home next in hopes to bring in a copy for the hospital. Pt family denies any other needs at this time. SW to continue to follow if any needs arise. Plan: Anticipated discharge home via POV when medically ready. Pt family denies any other needs at this time. SW to continue to follow if any needs arise. LUIS DANIEL Self Addendum: 08/07/16 at 1754 by CASTRO NAVA Amended: Links added.
--- NOTE | 2016-08-07 19:38 | PCM.PNMED ---
Subjective Date of Service Aug 07, 2016 Subjective Cate is a pleasant 85-year-old female with history of HTN, on lisinopril 5 mg tablets by mouth daily, GERD, on pantoprazole 40 mg tablets daily, recent diagnosis of pancreatitis and UTI on 08/04/2016 in the ED (patient placed on by mouth Keflex), who returned to the ED today complaining with acute onset shortness of breath at 1900 on 08/06/2016. Today, she denies fever, chills shortness of breath, chest pain, leg pain, and dysuria. Patient feels fatigued. Her daughter reports that her mother is back at her baseline in regards to her mental status. She has had a decreased appetite over the past week and has had diarrhea since yesterday. Patient reports that she ate both lunch and dinner yesterday. Exam Vital Signs Vital Sign - Last Date Time Temp Pulse Resp B/P Pulse Ox O2 Delivery O2 Flow Rate FiO2 08/07/16 17:00 45 18 90/42 98 Room Air 08/07/16 08:29 1.00 08/06/16 23:25 98 08/06/16 20:22 35.9 Intake and Output 08/06/16 08/06/16 08/07/16 Cumulative From/Thru 15:00 23:00 07:00 08/06/16 20:22 - 08/07/16 06:54 Intake Total 533 ml 533 ml Balance 533 ml 533 ml IV Total 533 ml 533 ml # Voids 1 1 # Bowel Movements 1 1 Exam General: Patient appears stated age, difficult of hearing, resting, comfortably in bed, in no acute distress, HEENT: Normocephalic, atraumatic, eyes PERRLA, EOMI, neck soft/supple, no adenopathy, no JVD, no masses, no nuchal signs, throat no erythema, dentures upper/lower, mucous membranes moist Lungs: Lungs clear all melo anterior and posterior, no crackles no wheezes no rhonchi Heart: Distant and difficult to auscultate Abdomen: Soft nontender active bowel tones, no organomegaly, nondistended, Genitourinary: No suprapubic tenderness, Extremities: Lower extremity bilateral non-pitting moderate edema Neurologic: Grossly neurologically intact, speaking in full sentences Skin: Warm to the touch and dry without visible rashes IVs and Medications Medications Reviewed: Medications were reviewed in detail Lab and Diagnostics Result Diagram: 08/07/1612408/07/16124 X-Rays, CTs and MRIs PROCEDURE: X-RAY CHEST ONE VIEW, PORTABLE IMPRESSION: No acute disease Dictated by: Justino Hope M.D. on 08/06/2016 at 21:05 Approved by: Justino Hope M.D. on 08/06/2016 at 21:05 Cardiac Echo Impressions Echocardiogram Report Interpretation Summary 1. Normal left ventricular size with mild proximal septal thickening and normal systolic function with an estimated EF of 65 to 70% 2. Normal right ventricular systolic function. The estimated right atrial pressure is low normal 3. No evidence for significant valvular pathology There is no old study for comparison Reading Physician:04:04 PM Assessment & Plan Cate is a pleasant 85-year-old female with history of HTN, on lisinopril 5 mg tablets by mouth daily, GERD, on pantoprazole 40 mg tablets daily, recent diagnosis of pancreatitis and UTI on 08/04/2016 in the ED (patient placed on by mouth Keflex), who returned to the ED today complaining with acute onset shortness of breath at 1900 on 08/06/2016, and with AMS for past week. Patient was reportedly bradycardic and hypotensive with a blood pressure of 82/52 when found by EMS. Patient was admitted secondary to AMS, shortness of breath and bradycardia. 1. Dyspnea, acute, present on admission. Improved. - Temperature 35.9, pulse 66, respiratory rate 18, blood pressure 107/50, 98% on room air - Patient came in with shortness of breath and difficulty breathing however is resting comfortably in bed speaking full sentences at the time of exam last night and today. She denies chest pain and dyspnea today. - Chest x-ray no acute cardiopulmonary process - Echocardiogram shows EF of 65-70% - D-Dimer elevated -Venous duplex ultrasound of bilateral lower extremities did not show a DVT -Due to patient's elevated creatinine, we will continue fluids overnight and if her creatinine is improved, will do a CT chest angiogram for PE in the morning. -Started heparin drip per protocol 2. Acute Kidney Injury, present on admission. Active. - Baseline creatinine 0.83 on 08/04/2016 - Creatinine 1.74 today - Volume repletion with IV NS at rate of 125 mL/h - Avoid nephrotoxic agents 3. Hypotension, acute, present on admission. Active. - Blood pressure continues to be hypotensive -Continue IV fluids normal saline at 125 mL/h -Held home anti-hypertensives 4. Bradycardia with First-degree AV block, acute, present admission. Active. - EKG in the ED showed sinus rhythm, rate of 73, with right bundle branch block , anterior fascicular block, and first-degree AV block. 2:1 AV block overnight - Patient has no history of pacemaker - Nurse to notify if patient heart rate below 50 and patient symptomatic. - We will plan to give atropine if patient symptomatic. - Cardiology consulted and following. Their time and recommendations are appreciated. - Monitor rhythm overnight 5. Acute Urinary Tract Infection, present on admission. Active. - Patient was diagnosed in ED on 08/04/2016 with pansensitive Escherichia coli on culture and placed on Keflex - We will continue outpatient Keflex 500 mg by mouth 4 times a day - Repeat UA ordered today - Bladder scan ordered to look for urinary retention 6. Acute diarrhea, present on admission. Active. - C. difficile and stool PCR negative 7. Anemia, chronicity unknown, present on admission. - H/H 11.2/33.7, MCV 97% - She reports remote history of gastric ulcers. - We will hold on any NSAIDs - We will continue to monitor with CBC 8. Leukocytosis, present on admission. Active. - Likely secondary to resolving urinary tract infection patient currently on oral antibiotics. - White blood cells 13.6 - Continue to monitor with CBC 9. Encephalopathy, acute, present on admission, improved. - Patient's daughter reporting that patient seems altered with regards to her mentation over the past week. Of note patient was recently diagnosed with urinary tract infection, urine culture grew pansensitive Escherichia coli, and patient was placed on Keflex. -Patient's daughter reports that her mother is back at baseline today Chronic problems Hypertension, - Hold lisinopril 5 mg by mouth daily secondary to acute kidney injury GERD, - Home pantoprazole 40 mg daily Disposition: Admitted to in patient service with expected length of stay greater than 2 days, secondary to severity of presenting symptoms, treatment plan, complexity of clinical work up, and risk of adverse events. CODE STATUS: Full PCP: Dr. Mccullough DPOA: Daughter Lupe Carlton [phone] VTE Prophylaxis: Sub-Q Heparin (Unfractionated) VTE Mechanical Devices: Intermittant Pneumatic CD Resuscitation Status: CPR: Attempt Resuscitation Attending Statement The patient was seen and examined together with Dr. Quinn on 08/07/2016 and I agree with the history, exam and plan as outlined in the note above. . Myrna Quinn DO Aug 07, 2016 18:35 Kenji Tate MD Aug 09, 2016 09:17 Myrna Quinn DO Aug 07, 2016 18:35
[2016-08-07] MEDS: Heparin 5,000 Unit/mL Inj IVPUSH PRN (20:40)
--- NOTE | 2016-08-07 21:31 | CONS ---
[address] [address] CONSULTATION REPORT PATIENT: GOLDEN QUIGLEY : 1930 MR#: [id number] ADMIT: 08/06/2016 JOB ID: [id number] DATE OF SERVICE: 08/07/2016 HISTORY OF PRESENT ILLNESS: This is a very pleasant 85-year-old patient who has been sick off and on over the past week. She was seen in the Emergency Department on July 31 with symptoms most consistent with acid reflux. She was placed on proton pump inhibitor and asked to avoid her Aleve and discharged home. She presented then on August 04 with symptoms of lower abdominal pain relieved with sitting up and exacerbated by lying down. She had some focal discomfort in her left lower quadrant and mild CVA tenderness. She was notably hyperkalemic with a potassium of 5.9 and mildly anemic with a hemoglobin of 10.5. Urinalysis demonstrated evidence of urinary tract infection, and she was given a prescription for antibiotics and discharged home for outpatient follow up. She returned last night after 911 was contacted because of sudden onset of dyspnea at rest with some pleuritic component to her chest discomfort. She was found to be mildly hypotensive and admitted for evaluation. She has been noted to have intermittent episodes of second-degree AV block with intermittent 2:1 heart block though she has been completely asymptomatic with no symptoms of syncope or near syncope. Blood pressure is notably lower than when she was seen in the emergency department on August 04. She has been on lisinopril for the last several months and states that she feels that she has developed an JOSELYN inhibitor related cough, and JOSELYN inhibitor may well explain her hyperkalemia on her prior exam as well. She denies a history of productive cough or sputum or hemoptysis. The patient has generally been fairly healthy. She takes low-dose medications for her blood pressure but has had no other significant medical problems other than the fact that she has been pretty much wheelchair dependent for some time because of a previous fall related to lower extremity weakness and apparently arthritic problems with her knees and back. She lives with her son, who helps with her general care and is able to get around the house and do transfers but generally is not able to get up and walk. She admits to symptoms of chronic bilateral lower extremity edema and has had no recent worsening in her edema or lower extremity discomfort. At the time of her exam this afternoon, she does not have any additional complaints of chest discomfort and has no complaints of ongoing dyspnea. Her blood work so far continues to show a mild anemia with a slight elevation in white cell count, and chemistries demonstrating a mild elevation in serum lipase. Troponin level on admission was mildly elevated at 0.027. Her creatinine is increased from 1.4-1.7. Liver function tests are normal. I do not see a urine culture. Chest x-ray is unremarkable showing normal cardiac size and no evidence of pulmonary congestion or infiltrate. PHYSICAL EXAMINATION: Shows a pleasant, 85-year-old female, alert and oriented, lying in bed, on her left side. She has obvious discomfort rolling from side to side. She has no evidence of jugular venous distention. She has a normal color. She appears in no acute distress. She is moderately hirsute. Lungs are clear. There is no evidence of obvious jugular venous distention audible. Heart rate shows a regular rate in the 70s. I do not hear significant murmur, though there is a soft aortic systolic murmur. No diastolic murmurs. No pericardial friction rub. Abdomen unremarkable. Distal extremities show 2+ lower extremity edema. LABORATORY: As noted above. IMPRESSION: The etiology for this patient's sudden onset of acute dyspnea and pleuritic chest discomfort and positive troponin could all be related to small pulmonary embolus. The echocardiogram shows hyperdynamic left ventricular systolic function, and the right ventricle appears mildly enlarged and hypokinetic, though the pulmonary artery pressure appears normal. She has no other clear-cut regional abnormalities or valvular heart disease that would account for her symptoms of dyspnea and hypotension. Her prior CT scan of the abdomen from a previous emergency department visit last week demonstrates evidence of aortic atherosclerosis, and there is evidence as well of fairly prominent coronary calcification involving all three coronary arteries; but again, her electrocardiogram and echocardiogram do not suggest any kind of an acute coronary syndrome. She does have intermittent second-degree heart block in the setting of right bundle and left axis deviation. She is on no medications to account for intermittent second-degree heart block. This could be triggered by her pulmonary embolus in the setting of chronic intrinsic conduction system disease and I think deserves continued observation as we sort things out before we make any decisions regarding the need for pacemaker therapy. At this point, I would recommend intravenous saline for volume repletion since she does look moderately volume starved, which should help for blood pressure. The possibility for pulmonary embolus needs to be further explored, and I would suggest considering instituting heparin therapy as that is ongoing. A venous Doppler examination would be helpful to start with. If this shows evidence of deep venous thrombosis, then the patient would be anticoagulated, and a presumptive diagnosis of PE could be made avoiding the need for CT angiogram. This patient did not tolerate the CT scan well because of her arthritic discomfort, and if a CT can be avoided that would be good for the patient. If the lower extremity Doppler examination is unremarkable and shows no abnormality, then a CT pulmonary angiogram should be done. This may want to wait until tomorrow to see if her creatinine improves with hydration. Previous creatinine on August 04 was normal at 0.8. I appreciate the opportunity of seeing this patient in consultation. Will follow up with her care tomorrow.
[2016-08-08] VITALS (8 sets, daily range): BP systolic 90–116; BP diastolic 47–70; PULSE 62–91; RESP 16–20; O2SAT 94–98
[2016-08-08] MEDS: Heparin 5,000 Unit/mL Inj IVPUSH PRN (01:48)
[2016-08-08] MEDS: 0.9% Sodium Chloride 1,000 ML IV SCH ×4 (01:50→19:58)
[2016-08-08 06:01] LABS: BASOPHILS % (AUTO) 0 % (0-3); EOSINOPHILS % (AUTO) 0.6 % (0-5); MONOCYTES % (AUTO) 8.8 % (4-12); Mean Corpuscular Hemoglobin 32.8 pg (27.0-35.0); NEUTROPHILS % (AUTO) 79.9 % (40-74); Platelet Count 240 bil/L (150-400)
[2016-08-08 07:00] LABS: TROPONIN T 0.01 ug/L (0.0-0.011)
--- NOTE | 2016-08-08 07:37 | NUR ---
Urinary Retention/IV Infiltration Pt was bladder scanned and had >423cc in bladder so a mann catheter was placed. 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 Pt's right AC PIV site infiltrated into the pt's lower right arm and had to be DC'd. Pharmacy was called and they said for pain cold could be applied to the site. Pt does not c/o pain and there is no redness in the arm. A new PIV was started in pt's left forearm and is still patent and intact. Pt has NS and heparin running through the site.
[2016-08-08] MEDS: Pantoprazole 40 mg ER24 Tablet PO SCH (07:54)
--- NOTE | 2016-08-08 11:42 | PCM.PNMED ---
Subjective Date of Service Aug 08, 2016 Subjective Cate is a pleasant 85-year-old female with history of HTN, on lisinopril 5 mg tablets by mouth daily, GERD, on pantoprazole 40 mg tablets daily, recent diagnosis of pancreatitis and UTI on 08/04/2016 in the ED (patient placed on by mouth Keflex), who returned to the ED today complaining with acute onset shortness of breath at 1900 on 08/06/2016. Overnight: She had intermittent first degree and second degree AV block. Today, she denies fever, chills shortness of breath, chest pain, leg pain, abdominal pain, and dysuria. Patient feels fatigued. Her daughter reports that her mother is back at her baseline cognition expect for her mother is having visual hallucinations at night. She thought her dog was in bed with her and thought two people were arguing in her room. She continues to feel weak and does not have her full strength back. Exam Vital Signs Vital Sign - Last Date Time Temp Pulse Resp B/P Pulse Ox O2 Delivery O2 Flow Rate FiO2 08/08/16 08:57 36.3 79 18 96/47 97 Room Air 08/07/16 08:29 1.00 08/06/16 23:25 98 Intake and Output 08/07/16 08/07/16 08/08/16 Cumulative From/Thru 15:00 23:00 07:00 08/06/16 20:22 - 08/08/16 06:17 Intake Total 740 ml 200 ml 1473 ml Output Total 300 ml 700 ml 1000 ml Balance 440 ml -500 ml 473 ml Intake Oral 240 ml 200 ml 440 ml IV Total 500 ml 1033 ml Output Urine Total 700 ml 700 ml Stool Total 300 ml 300 ml Urine/Stool Mix 0 ml 0 ml # Voids 1 # Bowel Movements 2 0 3 Exam General: Patient appears stated age, difficult of hearing, resting, comfortably in bed, in no acute distress, HEENT: Normocephalic, atraumatic, eyes PERRLA, EOMI, neck soft/supple, no adenopathy, no JVD, no masses, no nuchal signs, throat no erythema, dentures upper/lower, mucous membranes moist Lungs: Lungs clear all melo anterior and posterior, no crackles no wheezes no rhonchi Heart: Distant and difficult to auscultate Abdomen: Soft nontender active bowel tones, no organomegaly, nondistended, Genitourinary: No suprapubic tenderness, Extremities: Lower extremity bilateral non-pitting moderate edema Neurologic: Grossly neurologically intact, speaking in full sentences Skin: Warm to the touch and dry without visible rashes. No skin discoloration. IVs and Medications Medications Reviewed: Medications were reviewed in detail Lab and Diagnostics Result Diagram: 08/08/1653208/08/16532 X-Rays, CTs and MRIs PROCEDURE: X-RAY CHEST ONE VIEW, PORTABLE IMPRESSION: No acute disease Dictated by: Justino Hope M.D. on 08/06/2016 at 21:05 Approved by: Justino Hope M.D. on 08/06/2016 at 21:05 PROCEDURE: CT ANGIO CHEST PULMONARY EMBOLISM IMPRESSION: 1. Exam is negative for pulmonary embolic disease. 2. No acute cardiac pulmonary abnormality identified. 3. Left nephrolithiasis. 4. Atherosclerosis. Approved by: Sergio Rushing M.D. on 08/08/2016 at 11:44 PROCEDURE: US VENOUS LEG DUPLEX BILATERAL IMPRESSION: 1. No evidence of deep venous thrombosis in the right or left lower extremity. Approved by: Eber Turk M.D. on 08/07/2016 at 17:36 Cardiac Echo Impressions Echocardiogram Report Interpretation Summary 1. Normal left ventricular size with mild proximal septal thickening and normal systolic function with an estimated EF of 65 to 70% 2. Normal right ventricular systolic function. The estimated right atrial pressure is low normal 3. No evidence for significant valvular pathology There is no old study for comparison Reading Physician:04:04 PM Assessment & Plan Cate is a pleasant 85-year-old female with history of HTN, on lisinopril 5 mg tablets by mouth daily, GERD, on pantoprazole 40 mg tablets daily, recent diagnosis of pancreatitis and UTI on 08/04/2016 in the ED (patient placed on by mouth Keflex), who returned to the ED today complaining with acute onset shortness of breath at 1900 on 08/06/2016, and with AMS for past week. Patient was reportedly bradycardic and hypotensive with a blood pressure of 82/52 when found by EMS. Patient was admitted secondary to AMS, shortness of breath and bradycardia. 1. Dyspnea, acute, present on admission. Improved. - Temperature 35.9, pulse 66, respiratory rate 18, blood pressure 107/50, 98% on room air - Patient came in with shortness of breath and difficulty breathing however is resting comfortably in bed speaking full sentences at the time of exam last night and today. She denies chest pain and dyspnea today. - Chest x-ray no acute cardiopulmonary process - Echocardiogram shows EF of 65-70% - D-Dimer elevated - Venous duplex ultrasound of bilateral lower extremities did not show a DVT - Due to patient's elevated creatinine, continued fluids overnight and her creatinine is improved today - CT chest angiogram for PE showed no acute pulmonary embolism. - Stopped heparin drip 2. Acute Kidney Injury, present on admission. Active. - Baseline creatinine 0.83 on 08/04/2016 - Creatinine 1.42 today - CT scan showed left nephrolithiasis - Volume repletion with IV NS at rate of 125 mL/h and will resume after CT scan - Avoid nephrotoxic agents 3. Hypotension, acute, present on admission. Active. - Blood pressure continues to be hypotensive but improving - Continue IV fluids normal saline at 125 mL/h - Hold home anti-hypertensives 4. Generalized weakness, acute, present on admission. Active. - Patient is unable to transfer herself from bed to chair. Her baseline is being able to transfer from wheelchair to bed or wheelchair to chair. - Likely secondary to patient's current urinary tract infection and previous diarrhea. - Physical therapy was started today - Patient will likely need home health physical therapy after discharge 5. Bradycardia with First-degree AV block, acute, present admission. Active. - EKG in the ED showed sinus rhythm, rate of 73, with right bundle branch block , anterior fascicular block, and first-degree AV block. 2:1 AV block overnight - Patient has no history of pacemaker - Nurse to notify if patient heart rate below 50 and patient symptomatic. - Cardiology consulted and following. Their time and recommendations are appreciated. - Monitor rhythm overnight - Patient is to follow up with cardiology as an outpatient as needed. If she becomes symptomatic with her bradycardia, then she will need to be evaluated for a possible pacemaker placement. 6. Acute Urinary Tract Infection, present on admission. Active. - Patient was diagnosed in ED on 08/04/2016 with pansensitive Escherichia coli on culture and placed on Keflex - We will continue outpatient Keflex 500 mg by mouth 4 times a day - Repeat UA less leukocyte esterase but urine wbc 11-50, nitrite negative. Repeat urine culture pending - Bladder scan showed urine retention and Betancourt catheter placed last night - Betancourt catheter discontinued today. A repeat bladder scan after patient has voided will be performed. 7. Acute diarrhea, present on admission. Active. - C. difficile and stool PCR negative - Patient has not had any bowel movements today 8. Anemia, chronicity unknown, present on admission. - She reports remote history of gastric ulcers. - We will hold on any NSAIDs - We will continue to monitor with CBC 9. Leukocytosis, present on admission. Improved. - Likely secondary to resolving urinary tract infection patient currently on oral antibiotics. - White blood cells 7.9 - Continue to monitor with CBC 10. Encephalopathy, acute, present on admission, improved. - Patient's daughter reporting that patient seems altered with regards to her mentation over the past week. Of note patient was recently diagnosed with urinary tract infection, urine culture grew pansensitive Escherichia coli, and patient was placed on Keflex. - Patient's daughter reports that her mother is back at baseline cognition yesterday Chronic problems Hypertension, - Hold lisinopril 5 mg by mouth daily secondary to acute kidney injury GERD, - Home pantoprazole 40 mg daily Disposition: Patient will likely be discharged tomorrow with home health services. CODE STATUS: Full PCP: Dr. Mccullough DPOA: Daughter Lupe Carlton [phone] VTE Prophylaxis: Sub-Q Heparin (Unfractionated) VTE Mechanical Devices: Intermittant Pneumatic CD Resuscitation Status: CPR: Attempt Resuscitation Attending Statement The patient was seen and examined together with Dr. Quinn on 08/08/2016 and I agree with the history, exam and plan as outlined in the note above. . Myrna Quinn DO Aug 08, 2016 11:01 Kenji Tate MD Aug 09, 2016 09:17
--- NOTE | 2016-08-08 11:46 | DRSVH ---
PROCEDURE: CT ANGIO CHEST PULMONARY EMBOLISM ([id number]) INDICATIONS: SHORTNESS OF BREATH, PLEURITIC CHEST PAIN, R/O PE TECHNIQUE: After the administration of intravenous contrast, 2 mm thick sections acquired from the pulmonary api frank to the posterior costophrenic angles. 3-dimensional maximum intensity projection (MIP) coronal a nd sagittal reformats were then acquired through the thorax. For radiation dose reduction, the follo wing was used: automated exposure control, adjustment of mA and/or kV according to patient size. COMPARISON: Chest 08/06/2016 FINDINGS: Image quality: Excellent. Pulmonary arteries: Pulmonary arteries are normal in size, and demonstrate no intraluminal filling d efects to suggest central pulmonary embolism. Lungs and pleura: Lungs are clear. No pleural effusions or pneumothorax. Central and peripheral ai rways are patent. Mediastinum: Heart size is normal, without pericardial effusion. No mediastinal or hilar adenopathy . Thoracic aorta is normal in caliber and enhancement. Esophagus is normal in caliber, without hiat al hernia. Bones and chest wall: No suspicious bony lesions. Ribs and thoracic spine appear intact throughout. Thyroid gland appears normal. No axillary or supraclavicular adenopathy. Abdomen: Visualized upper abdominal solid organs appear normal in the early arterial phase of enhanc ement. Small calcification in the region of the cystic duct is likely vascular. Nonobstructing calcul i upper pole of the left kidney. IMPRESSION: 1. Exam is negative for pulmonary embolic disease. 2. No acute cardiac pulmonary abnormality identified. 3. Left nephrolithiasis. 4. Atherosclerosis. Dictated by: Sergio Rushing M.D. on 08/08/2016 at 11:39 Approved by: Sergio Rushing M.D. on 08/08/2016 at 11:44
--- NOTE | 2016-08-08 12:25 | NUR ---
PTT results PTT came back at 240 for 3 readings between the hours of 0700 and 1100. Each time following the protocal with stopping the heparin and getting a repeat PTT. After discussion with the hospitalist and pharmacist the Heparin is on hold starting at 1130 till 1400 when a PTT will be drawn. After the result we will go from there. Addendum: 08/08/16 at 1509 by ELISA WILD RN PTT at 1400 came back at 142.4. Discussed with 's they DC'd the heparin due to no PE.
[2016-08-08 14:42] LABS: APPEARANCE,URINE HAZY (CLEAR,HAZY); COLOR,URINE STRAW (YELLOW); OCCULT BLOOD,URINE NEGATIVE (NEGATIVE); UROBILINOGEN,URINE NORMAL (NORMAL)
--- NOTE | 2016-08-08 15:54 | NUR ---
Evaluation completed. Please go to "Notes" then click on "Assessments and Notes" (bottom left corner of screen). Then select appropriate discipline tab on top of screen.
--- NOTE | 2016-08-08 17:16 | PROG NOTE ---
[address] [address] PROGRESS NOTE PATIENT: GOLDEN QUIGLEY : 1930 MR#: [id number] ADMIT: 08/06/2016 JOB ID: [id number] DATE: 08/08/[address] pulmonary angiogram today. This did not demonstrate any evidence of pulmonary emboli and she also had a negative peripheral vein Doppler exam yesterday. She is doing well clinically without any residual dyspnea and an etiology of her acute dyspnea is not at all apparent. Her cardiac enzymes are normal. She does have coronary calcification and likely has some underlying ischemic heart disease but is on appropriate medication. 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 At this point, I think it is reasonable for her to be discharged home. 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 Pacemaker therapy is not indicated unless she were to have clear-cut symptomatic bradyarrhythmia. I appreciate the opportunity of assisting with this patient's care. Please contact Cardiology if further assistance is needed.
--- NOTE | 2016-08-08 17:29 | NUR ---
spiritual care: follow/pt request pt sleeping soundly did not rouse to voice.
[2016-08-09 00:24] VITALS: BP 122/74; PULSE 63; RESP 18; O2SAT 97
[2016-08-09 03:23] VITALS: BP 106/52; PULSE 83; RESP 16; O2SAT 97
[2016-08-09] MEDS: 0.9% Sodium Chloride 1,000 ML IV SCH ×2 (03:55→11:47)
--- NOTE | 2016-08-09 05:33 | NUR ---
: [facility] D/c on day shift. before HS pt up to [facility] able to void w/o any issue. Pt up early this am to [facility] and voiding ample amount(400ml)-Post bladder scan residual showing variable, inconsistent reading anywhere from 50 to a reading of >300. Pt does not appear distended or uncomfortable, denies any urge to void.
[2016-08-09 06:14] LABS: BASOPHILS % (AUTO) 0.2 % (0-3); EOSINOPHILS % (AUTO) 1.1 % (0-5); MONOCYTES % (AUTO) 8.8 % (4-12); Mean Corpuscular Hemoglobin 32.4 pg (27.0-35.0); Mean Corpuscular Volume 97.1 fL (81-100); NEUTROPHILS % (AUTO) 77.4 % (40-74); Platelet Count 199 bil/L (150-400)
--- NOTE | 2016-08-09 06:28 | NUR ---
Critical Result Hemoglobin 6.8, Pt noted to have had infiltrated IVs in bilateral arms, possibility of diluted blood sample. Dr. Grove made aware of Pts critical value. STAT CBC redraw ordered
[2016-08-09 07:23] LABS: BASOPHILS % (AUTO) 0.1 % (0-3); EOSINOPHILS % (AUTO) 0.8 % (0-5); MONOCYTES % (AUTO) 7.4 % (4-12); Mean Corpuscular Volume 97.8 fL (81-100); NEUTROPHILS % (AUTO) 77.5 % (40-74); Platelet Count 231 bil/L (150-400)
[2016-08-09 09:28] VITALS: BP 100/55; PULSE 81; RESP 16; O2SAT 96
[2016-08-09] MEDS: Pantoprazole 40 mg ER24 Tablet PO SCH (09:37)
[2016-08-09 10:27] VITALS: PULSE 82
[2016-08-09 12:29] VITALS: BP 107/70; PULSE 72; RESP 16; O2SAT 97
--- NOTE | 2016-08-09 12:51 | NUR ---
Social Work Note: Discharge Data& Assessment: Per pt is medically ready for discharge. Cate Ponce is a 85 year old female under observation beginning on 08/06/2016 for dyspnea and hypertension. Per pt is medically improved and ready for discharge. Per PT, pt is closer to her baseline and cleared to go home with PT. SW spoke with pt daughter regarding discharge planning. Pt daughter is agreeable to home health services in the home. Pt and pt family does not have a preference for home health agencies and is agreeable to referring to the rotating calender. Referral sent to [facility] for PT and RN. Access provided. Pt daughter will be transporting pt home at 2:00pm today. Pt family denies any other needs. No other discharge needs identified. Plan: Per pt is medically ready for discharge home with son and daughter as well as [facility] PT and RN home health via POV. Pt daughter will be transporting pt home at 2:00pm today. Pt family denies any other needs. No other discharge needs identified. LUIS DANIEL Self
--- NOTE | 2016-08-09 13:44 | PCM.DIMED ---
Minerva Quinnssmadina Lucas DO 08/09/16 1344: Discharge Instructions Date of Service Aug 09, 2016 Dates of Hospitalization Aug 06, 2016 at 22:37 Discharge Diagnosis Discharge Diagnosis 1. Dyspnea 2. Acute Kidney Injury 3. Hypotension 4. Generalized weakness 5. Bradycardia with First-degree and Second-degree type I AV block 6. Acute Urinary Tract Infection 7. Acute diarrhea 8. Anemia 9. Leukocytosis 10. Encephalopathy Diet Heart Healthy Activity Limited until seen by PCP Call your provider Fever or Chills, Shortness of breath, Bleeding, Chest pain, Excessive diarrhea, Weakness (unilateral), Other (feeling like you're going to faint or pass out) Patient Instructions You will go home with home health services including physical therapy for continued strengthening and nursing to check vital signs. Continue to get out of bed with your son's assistance. Stop your blood pressure medications until evaluated by your primary care provider. Make sure to drink plenty of fluids. Stop the pantoprazole until evaluated by your primary care provider, but you can take [id number] Tums for heartburn until then. For your urinary tract infection, continue cephalexin (Keflex) 500 mg by mouth 4 times per day for 4 more days. During the rest of the antibiotic course, you should include probiotics in your diet, such as yogurt or sauerkraut, to prevent diarrhea. For your low heart rate, if you feel like you are going to faint or pass out or if you faint or pass out, then you need to see a mine motor operator, or direct marketing specialist, to discuss the possible need for a pacemaker. You should avoid medications called beta raghavendra and calcium channel blockers. Seek medical attention if you see bright, red blood in your stools or have dark , tarry stools. You will need follow up blood work to continue to monitor your complete blood cell counts and your kidney function. Follow up with your primary care provider within 1 week. Follow-up Provider: Laz Mccullough MD Follow-up with PCP in: 1 week Breezy Casillas MD 08/10/16 1502: Discharge Instructions Attending's Statement Patient was seen and examined with house staff. Agree with all attached documentation. Myrna Quinn DO Aug 09, 2016 13:44 Breezy Casillas MD Aug 10, 2016 15:02
--- NOTE | 2016-08-09 16:38 | NUR ---
Discharge Pt discharged to transported home by her daughter. Pt's IV's dc'd intact, telemetry was removed and tech notified. Pt's belongings were gathered to be sent with patient. Discharge instructions, Medications and follow up appointments were reviewed. All questions were answered and pt and her daughter voiced understanding. Pt was escorted off unit by [facility] to her daughter's vehicle.
--- NOTE | 2016-08-10 22:56 | PCM.DC.MED ---
Discharge Summary Date of Service Aug 10, 2016 Dates of Hospitalization Date of Hospital Admission Aug 06, 2016 at 22:37 Date of Discharge: Aug 09, 2016 Providers: Admitting Physician: Amari Burrell MD Primary Care Physician: Laz Mccullough MD Attending Physician: Amari Burrell MD Diagnosis at Time of Discharge Diagnosis at Time of Discharge 1. Dyspnea 2. Acute Kidney Injury 3. Hypotension 4. Generalized weakness 5. Bradycardia with First-degree and Second-degree type I AV block 6. Acute Urinary Tract Infection 7. Acute diarrhea 8. Anemia 9. Leukocytosis 10. Encephalopathy Procedures XRay, CTs & MRIs PROCEDURE: X-RAY CHEST ONE VIEW, PORTABLE IMPRESSION: No acute disease Dictated by: Justino Hope M.D. on 08/06/2016 at 21:05 Approved by: Justino Hope M.D. on 08/06/2016 at 21:05 PROCEDURE: CT ANGIO CHEST PULMONARY EMBOLISM IMPRESSION: 1. Exam is negative for pulmonary embolic disease. 2. No acute cardiac pulmonary abnormality identified. 3. Left nephrolithiasis. 4. Atherosclerosis. Approved by: Sergio Rushing M.D. on 08/08/2016 at 11:44 PROCEDURE: US VENOUS LEG DUPLEX BILATERAL IMPRESSION: 1. No evidence of deep venous thrombosis in the right or left lower extremity. Approved by: Eber Turk M.D. on 08/07/2016 at 17:36 ECG 12 Lead Sinus rhythm with first degree AV block Cardiac Echo Impression Echocardiogram Report Interpretation Summary 1. Normal left ventricular size with mild proximal septal thickening and normal systolic function with an estimated EF of 65 to 70% 2. Normal right ventricular systolic function. The estimated right atrial pressure is low normal 3. No evidence for significant valvular pathology There is no old study for comparison Reading Physician:04:04 PM Brief History From the history and physical performed by Dr. Terrence Garcia on 08/07/2016 : Cate is a pleasant 85-year-old female with history of HTN, on lisinopril 5 mg tablets by mouth daily, GERD, on pantoprazole 40 mg tablets daily, recent diagnosis of pancreatitis and UTI on 08/04/2016 in the ED (patient placed on by mouth Keflex), who returned to the ED today complaining with acute onset shortness of breath at 1900 on 08/06/2016. Patient was reportedly bradycardic and hypotensive with a blood pressure of 82/52 when found by EMS. She was given IV fluids at that time. Patient is accompanied by her daughter who states patient is normally relatively healthy however over the past week patient 's level of mentation has decreased. Reportedly patient was having some chest pain with deep breathing while in the emergency department, however during the admission patient denied any sort of chest pain or abdominal pain. Patient heart rate continues to show bradycardia with rate in 40s, however patient is asymptomatic. Of note patient describes 3 episodes of diarrhea in the past 24 hours. Patient denied chest pain, nausea, vomiting, fever, abdominal pain, constipation, dysuria. In the ED,: Vital signs temperature 5.9, pulse 66, respiratory rate 18, blood pressure 107/50, 98% on room air, Repeat vitals heart rate 61, respiratory rate 20, blood pressure 95/45, O2 is 99 % on 2 L. Hemogram: the WBC 10.3, hemoglobin 11.2, hematocrit 33.5, platelets 304, neutrophils 86%. Chemistry panel: Sodium 1:30, chloride 94, potassium 4.7, CO2 19, BUN 43, creatinine 1.42, glucose 109, magnesium 1.9, troponin 0.027, lipase 78H Chest x-ray in the ED showed no acute cardiopulmonary process. EKG showed sinus rhythm of 73, right bundle branch block, anterior fascicular block, first-degree AV block Hospital Course Cate is a pleasant 85-year-old female with history of HTN, on lisinopril 5 mg tablets by mouth daily, GERD, on pantoprazole 40 mg tablets daily, recent diagnosis of pancreatitis and UTI on 08/04/2016 in the ED (patient placed on by mouth Keflex), who returned to the ED today complaining with acute onset shortness of breath at 1900 on 08/06/2016, and with AMS for past week. Patient was reportedly bradycardic and hypotensive with a blood pressure of 82/52 when found by EMS. Patient was admitted secondary to AMS, shortness of breath and bradycardia. 1. Dyspnea, acute, present on admission. Improved. - Temperature 35.9, pulse 66, respiratory rate 18, blood pressure 107/50, 98% on room air - Patient came in with shortness of breath and difficulty breathing however was resting comfortably in bed speaking full sentences at the time of exam and for hospital stay. - Chest x-ray showed no acute cardiopulmonary process - Echocardiogram showed EF of 65-70% - D-Dimer mildly elevated - Venous duplex ultrasound of bilateral lower extremities did not show a DVT - Due to patient's elevated creatinine, continued fluids overnight and her creatinine was improved the following day - CT chest angiogram for PE showed no acute pulmonary embolism and stopped heparin drip 2. Acute Kidney Injury, present on admission. Improved. - Baseline creatinine 0.83 on 08/04/2016 - Creatinine 0.99 on day of discharge - CT scan showed incidental left nephrolithiasis - She was given volume repletion with IV normal saline at rate of 125 mL/h - Avoided nephrotoxic agents 3. Hypotension, acute, present on admission. Improved. - Secondary to volume depletion from a combination of UTI, decreased appetite, diarrhea, and continued diuretic use. - Patient was given IV fluids as above - Held home anti-hypertensives 4. Generalized weakness, acute, present on admission. Active. - Patient was unable to transfer herself from bed to chair but improved closer to her baseline on day of admission. - Likely secondary to patient's hypotension above, see #3. - Physical therapy had physical therapy for 2 days. - Patient is to continue home health physical therapy after discharge 5. Bradycardia with First-degree and second degree type I AV block, acute, present admission. Active. - EKG in the ED showed sinus rhythm, rate of 73, with right bundle branch block , anterior fascicular block, and first-degree AV block. 2:1 AV block (second degree type I) occurred intermittently as well. - Patient is to follow up with cardiology as an outpatient as needed. If she becomes symptomatic with her bradycardia, then she will need to be evaluated for a possible pacemaker placement. 6. Acute Urinary Tract Infection, present on admission. Improved. - Patient was diagnosed in ED on 08/04/2016 with pansensitive Escherichia coli on culture and placed on Keflex - We continued outpatient Keflex 500 mg by mouth 4 times a day for 4 more days - Repeat UA less leukocyte esterase but urine wbc 11-50, nitrite negative. - Repeat urine culture showed no growth. 7. Acute diarrhea, present on admission. Improved. - C. difficile and stool PCR negative 8. Anemia, chronicity unknown, present on admission. Active. - She reported remote history of gastric ulcers. - We held NSAIDs - Recommend outpatient monitoring and possible further work-up of cause of anemia if needed. I also recommend performing a stool guaiac test if concerned about active GI bleeding. 9. Leukocytosis, present on admission. Improved. - Likely secondary to resolving urinary tract infection patient currently on oral antibiotics. - White blood cells 7.3 on day of discharge 10. Encephalopathy, acute, present on admission. Improved. - Patient's daughter reported that patient seemed altered with regards to her mentation. - Likely related to hypotension, see #3 above - Patient's daughter reported that her mother is back at baseline cognition Chronic problems Hypertension, - Held lisinopril 5 mg by mouth daily secondary to acute kidney injury. Consider possibly resuming if blood pressure and kidney function are stable. GERD, - Held home pantoprazole 40 mg daily as an outpatient because of possible negative effect on kidney function. Exam Vital Signs (Last) Date Time Temp Pulse Resp B/P Pulse Ox O2 Delivery O2 Flow Rate FiO2 08/09/16 12:29 36.3 72 16 107/70 97 Room Air 08/07/16 08:29 1.00 08/06/16 23:25 98 Exam General: Patient appears stated age, difficult of hearing, resting, comfortably in bed, in no acute distress, HEENT: Normocephalic, atraumatic, eyes PERRLA, EOMI, neck soft/supple, no adenopathy, no JVD, no masses, no nuchal signs, throat no erythema, dentures upper/lower, mucous membranes moist Lungs: Lungs clear all melo anterior and posterior, no crackles no wheezes no rhonchi Heart: Distant and difficult to auscultate Abdomen: Soft nontender active bowel tones, no organomegaly, nondistended, Genitourinary: No suprapubic tenderness, Extremities: Lower extremity bilateral non-pitting moderate edema Neurologic: Grossly neurologically intact, speaking in full sentences Skin: Warm to the touch and dry without visible rashes. No skin discoloration. Test 08/06/16 20:24 08/07/16 01:25 08/07/16 01:40 08/08/16 05:33 Magnesium Level 1.9mg/dL (1.6-2.6) Pro-B-Type Natriuretic Peptide 490pg/mL (0-738) Lipase 62U/L (13-60) D-Dimer 0.8mg/L (<0.50) Hemoglobin A1c 5.8% (4.8-5.6) Troponin T 0.010ug/L (0.0-0.011) Test 08/08/16 14:00 08/08/16 14:05 08/09/16 05:40 08/09/16 07:00 Urine Color Straw (YELLOW) Urine Appearance Hazy (CLEAR,HAZY) Urine pH 5.0 (5.0-8.0) Urine Specific [place] 1.010 (1.003-1.035) Urine Protein Negativemg/dL (NEG,TRACE) Urine Glucose (UA) Negativemg/dL (NEGATIVE) Urine Ketones Negativemg/dL (NEGATIVE) Urine Occult Blood Negative (NEGATIVE) Urine Nitrite Negative (NEGATIVE) Urine Bilirubin Negative (NEGATIVE) Urine Urobilinogen Normalmg/dL (NORMAL) Urine Leukocyte Esterase Small (NEGATIVE) Urine RBC 0-2/hpf (0-2) Urine WBC 11-50/hpf (0-5) Urine Epithelial Cells Few/hpf (NONE-MOD) Urine Crystals None seen (NONE SEEN) Urine Bacteria Few/hpf (NONE-FEW) Urine Hyaline Casts None/lpf (NONE) Urine Granular Casts None seen (NONE SEEN) Urine Waxy Casts None seen (NONE SEEN) Urine Red Blood Cell Casts None seen (NONE SEEN) Urine White Blood Cell Casts None seen (NONE SEEN) Urine Mucus None seen (None Seen) Urine Trichomonas None seen (NONE SEEN) Urine Yeast None (NONE SEEN) Urinalysis Comment None Urine Culture Reflexed Indicated Activated Partial Thromboplast Time 142.4sec (22.8-33.0) Total Bilirubin 0.2mg/dL (0.0-1.2) Aspartate Amino Transf (AST/SGOT) 12U/L (0-50) Alanine Aminotransferase (ALT/SGPT) 9U/L (0-32) Alkaline Phosphatase 85U/L (25-165) Total Protein 3.5g/dL (6.4-8.4) Albumin 2.0g/dL (3.4-5.0) White Blood Count 7.3th/mm3 (3.8-10.1) Red Blood Count 2.70mil/mm3 (3.90-5.20) Hemoglobin 8.9g/dL (12.0-15.6) Hematocrit 26.4% (35.0-46.0) Mean Corpuscular Volume 97.8fL (81-100) Mean Corpuscular Hemoglobin 33.0pg (27.0-35.0) Mean Corpuscular Hemoglobin Concent 33.7% (32.0-37.0) Red Cell Distribution Width 13.0% (12.3-15.4) Platelet Count 231bil/L (150-400) Neutrophils (%) (Auto) 77.5% (40-74) Lymphocytes (%) (Auto) 13.4% (14-46) Monocytes (%) (Auto) 7.4% (4-12) Eosinophils (%) (Auto) 0.8% (0-5) Basophils (%) (Auto) 0.1% (0-3) Sodium Level 138mEq/L (134-144) Potassium Level 4.3mEq/L (3.5-5.2) Chloride Level 106mEq/L (97-108) Carbon Dioxide Level 17mmol/L (18-29) Blood Urea Nitrogen 35mg/dL (8-27) Creatinine 0.99mg/dL (0.57-1.00) Estimat Glomerular Filtration Rate 76mL/min (>59) Glucose Level 81mg/dL (60-99) Calcium Level 7.9mg/dL (8.5-10.1) Discharge Medications Discharge Medications ([otc eye vitamins]) Unknown Strength Unknown Dose PO BID (Reported) Cephalexin (Keflex) 500 Mg Capsule 500 MG PO QID Prescribed by: VIKASH DSOUZA As needed Acetaminophen (Acetaminophen) 325 Mg Tablet 325 MG PO TID PRN PRN For Pain ( Reported) Followup Plan Disposition: Home Discharge Diet: Heart Healthy Discharge Activity: Limited until seen by PCP Patient Instructions You will go home with home health services including physical therapy for continued strengthening and nursing to check vital signs. Continue to get out of bed with your son's assistance. Stop your blood pressure medications until evaluated by your primary care provider. Make sure to drink plenty of fluids. Stop the pantoprazole until evaluated by your primary care provider, but you can take [id number] Tums for heartburn until then. For your urinary tract infection, continue cephalexin (Keflex) 500 mg by mouth 4 times per day for 4 more days. During the rest of the antibiotic course, you should include probiotics in your diet, such as yogurt or sauerkraut, to prevent diarrhea. For your low heart rate, if you feel like you are going to faint or pass out or if you faint or pass out, then you need to see a bullard operator, or financial specialist, to discuss the possible need for a pacemaker. You should avoid medications called beta raghavendra and calcium channel blockers. Seek medical attention if you see bright, red blood in your stools or have dark , tarry stools. You will need follow up blood work to continue to monitor your complete blood cell counts and your kidney function. Follow up with your primary care provider within 1 week. Follow-up Provider: Laz Mccullough MD Follow-up with PCP in: 1 week Time spent 40 minutes Attending Statement Patient seen and examined with house staff. Agree with all attached documentation. copies to: Laz Mccullough MD, Marissa L DO Aug 10, 2016 22:56 Breezy Casillas MD Aug 12, 2016 07:35
== END 2016-08-09 15:06 | disposition home or self-care (01) ==
LOC: SED 20:10 → EDUNIT# 20:10 → EDBD 20:10 → PCC 22:37
PROVIDERS: ADMIT Hospitalist; ATTEND Hospitalist
DX: R06.00 Dyspnea, unspecified (principal); N17.9 Acute kidney failure, unspecified; I95.9 Hypotension, unspecified; R53.1 Weakness; R00.1 Bradycardia, unspecified; I44.0 Atrioventricular block, first degree; I44.1 Atrioventricular block, second degree; N39.0 Urinary tract infection, site not specified; B96.20 Unspecified Escherichia coli [E. coli] as the cause of diseases classified elsewhere; D64.9 Anemia, unspecified; D72.829 Elevated white blood cell count, unspecified; G93.40 Encephalopathy, unspecified; R06.02 Shortness of breath; I10 Essential (primary) hypertension; K21.9 Gastro-esophageal reflux disease without esophagitis; K85.90 Acute pancreatitis without necrosis or infection, unspecified; R07.2 Precordial pain; R79.89 Other specified abnormal findings of blood chemistry
CPT/HCPCS: 36415; 71010; 71275; 80048; 80053; 81000; 83036; 83690; 83735; 83880; 84484; 85025; 85379; 85730; 87086; 87507; 93005; 93970; 94664; 96374; 96376; 97161; 97530; 99285; C8929; G0378; J1644; J7030; Q9967

== ENCOUNTER 2016-08-28 22:53 | Inpatient (IN) | payer MEDICARE, OTHER ==
[~2016-08-28] VITALS: Ht 162.6 cm; Wt 78.8 kg
[~2016-08-28 22:53] MED LIST changes: +ACET325T51 PO; -LISI-571 PO; -NAPR220C11 PO; -PANT40TA3 PO
[2016-08-28 23:30] VITALS: BP 136/66; PULSE 60; RESP 14; O2SAT 97
[2016-08-28 23:45] LABS: BASOPHILS % (AUTO) 0.2 % (0-3); EOSINOPHILS % (AUTO) 0.7 % (0-5); MONOCYTES % (AUTO) 10.2 % (4-12); Mean Corpuscular Hemoglobin 31.8 pg (27.0-35.0); Mean Corpuscular Volume 98.3 fL (81-100); NEUTROPHILS % (AUTO) 70.2 % (40-74); Platelet Count 172 bil/L (150-400)
[2016-08-29] VITALS (8 sets, daily range): BP systolic 133–153; BP diastolic 44–83; PULSE 40–76; RESP 12–20; O2SAT 94–99
[2016-08-29 00:23] LABS: Magnesium 1.7 mg/dL (1.6-2.6); TROPONIN T 0.032 ug/L (0.0-0.011)
--- NOTE | 2016-08-29 00:39 | ED.REPORT ---
HPI-Dizziness / Weakness Date of Service Aug 29, 2016 ED Provider: Rikki Hamilton MD Patient is a 85 year old female with a history of hypertension and known intermittent second-degree heart block who presents to the ED via EMS complaining of intermittent dizziness for the past 2 weeks. Tonight, her dizziness was so severe that she thought there was an earthquake in her house. The patient states that the dizziness is present whether she is sitting or laying down. Her symptoms are not worse with movement of her head. Patient denies any ear pain or the sensation of her ears being clogged. Patient denies having chest pain or shortness of breath. She has swelling in her legs at baseline. Her daughter states that the patient does not appear to be herself and that she has appeared "fragile". She has been weaker than normal and increased trouble getting around in her wheelchair. Patient was recently admitted to [facility] due to a second degree heart block but it was decided that a pacemaker was no indicated at this time. Her glass deposition tender is Dr. Aguirre. Nursing Notes Stated Complaint: DIZZY Chief Complaint: General Complaint Nursing Notes Reviewed: Yes Allergies: Coded Allergies: Penicillins (Verified Allergy, Intermediate, Hives, 08/28/16) aspirin (Verified Allergy, Intermediate, Rash, 08/28/16) Scheduled ([otc eye vitamins]) Unknown Strength Unknown Dose PO BID Scheduled PRN Acetaminophen (Acetaminophen) 325 Mg Tablet 325 MG PO TID PRN PRN For Pain General Time Seen by MD: 00:29 Chief Complaint Dizzy Hx Obtained From: Patient Arrived By: Ambulance Onset Occurred: More than a week ago... (2 weeks) Symptom Duration: Intermittent Location: : No pain Severity: Current: No pain currently Severity: Maximum: No pain Recent Healthcare: Recent doctor visit, Recent hospitalization Similar Sx Previous: No Past Medical History Past Medical History Hypertension GERD Gastric ulcer UTI Pancreatitis second-degree heart block Past Surgical History None reported Smoking History Never Smoker Social History Alcohol Use: Denies alcohol use Drug Use: Denies drug use Other Social History: Good social support, Lives with children Ambulatory Status Independent Review of Systems Constitutional: Reports: Weakness - generalized Ears / Nose / Throat: Denies: Earache bilateral, Hearing loss bilateral Respiratory: Denies: Non-productive cough, Shortness of breath Cardiovascular: Denies: Chest pain, Palpitations Neurologic: Reports: Dizziness, Denies: Change LOC Complete sys rev & neg: except as marked. Musculoskeletal: Denies: Extremity pain, Extremity swelling (not increased) Physical Exam Initial Vital Signs Vital Signs (First) Date Time Temp Pulse Resp B/P Pulse Ox O2 Delivery O2 Flow Rate FiO2 08/28/16 23:30 35.4 60 14 136/66 97 Room Air Initial VS: Reviewed, Vital signs normal Skin: Warm, Dry, No cyanosis Psychiatric: Mood/affect normal, Behavior normal, Normal thought content General/Constitutional: Awake, Alert, No acute distress Head / Eyes: Normocephalic, PERRL, EOMI Eye Movement: Positive: Nystagmus present (2-3 beat nystagmus in both directions) Respiratory / Chest: Breath sounds NL, Breath sounds = bilat, No respiratory distress, No rales, No rhonchi, No wheezing Cardiovascular: Heart rate NL, No murmurs Heart Rate / Rhythm: Positive: Irregular rhythm (1:1 and 2:1 conduction, variable) Neurologic: Oriented X3, Speech NL, No motor deficits, No sensory deficits ENT: Airway patent, Tympanic membs NL Neck: Supple, No JVD Abdomen: Soft, Non-tender, No guarding, No rebound Lower Extremity / Pelvis / MS: No deformity, Neurologic intact, Vascular intact 3+ edema left leg, 2+ edema right leg Interpretation & Diagnostics Lab Results Interpretation Result Diagram: 08/28/16 2334 08/29/16 0510 Test 08/28/16 23:34 White Blood Count 4.1th/mm3 (3.8-10.1) Red Blood Count 2.86mil/mm3 (3.90-5.20) Hemoglobin 9.1g/dL (12.0-15.6) Hematocrit 28.1% (35.0-46.0) Mean Corpuscular Volume 98.3fL (81-100) Mean Corpuscular Hemoglobin 31.8pg (27.0-35.0) Mean Corpuscular Hemoglobin Concent 32.4% (32.0-37.0) Red Cell Distribution Width 13.1% (12.3-15.4) Platelet Count 172bil/L (150-400) Neutrophils (%) (Auto) 70.2% (40-74) Lymphocytes (%) (Auto) 18.5% (14-46) Monocytes (%) (Auto) 10.2% (4-12) Eosinophils (%) (Auto) 0.7% (0-5) Basophils (%) (Auto) 0.2% (0-3) Band Neutrophils % 0% (1-5) Lab Results Interpretation: Chronic anemia, elevated troponin. ECG Interpretation ECG Interpretation: 2:1 AV block, Rate 38 Right bundle branch block Time: 23:59 Interpreted by: ED physician Normal ECG Interpretation: No acute ischemic changes X-Ray Chest Interpretation Chest Xray Interpretation: Impression: Cephalization. Changes consistent with mild CHF. View: Portable Interpretation / Wet Read by: Wet read ED physician Reviewed Previous Films: Findings are new Re-Eval/Medical Decision Med Decision/Clinical Course 86-year-old female who has been weak, dizzy, and unable to do the usual ADLs that she continue. She is found to have an elevated troponin with a normal EKG. She will be admitted for further evaluation. Source of Hx: Old records Re-Evaluation/Progress : Time of Eval: 00:57 Patient Status: Condition improved Re-Evaluation/Progress Note: Informed the patient and her daughter of the plan for hospital admission. Discussed the results of the chest x-ray, EKG, and labs. Patient understands and agrees with this plan. All questions were addressed. Consultation : Referral / Consult Name: Radha Griffiths DO Consulted With: Hospitalist Call Returned at: 01:17 Pasteurizer Helper: Will see patient, Agrees with eval, Agrees with plan, Accepts admit Note: Spoke with Dr. Griffiths, hospitalist, who agrees to accept admit. Counseled Regarding: Diagnosis, Lab results, Need for admission Patient Discharge & Departure Impression: Primary Impression: Elevated troponin Additional Impression: Dizziness Disposition: ADMITTED TO HOSPITAL Discharge Condition All VS Reviewed: Yes Condition: Stable Referrals: Laz Mccullough MD (PCP) Dale Attestation Portions of this note were transcribed by Smiley Galvez. I, Dr. Hamilton personally performed the history, physical exam and medical decision-making; I reviewed and confirmed the accuracy of the information in the transcribed note. Signed by: Dale Garcia, 08/29/2016 0213 Laz Mccullough MD, Howard L MD Aug 29, 2016 00:39 Smiley Galvez Aug 29, 2016 00:47 Mean Corpuscular Hemoglobin Concent 32.4% (32.0-37.0) Red Cell Distribution Width 13.1% (12.3-15.4) Platelet Count 172bil/L (150-400) Neutrophils (%) (Auto) 70.2% (40-74) Lymphocytes (%) (Auto) 18.5% (14-46) Monocytes (%) (Auto) 10.2% (4-12) Eosinophils (%) (Auto) 0.7% (0-5) Basophils (%) (Auto) 0.2% (0-3) Band Neutrophils % 0% (1-5) ECG Interpretation ECG Interpretation: 2:1 AV block, Rate 38 Right bundle branch block Time: 23:59 Interpreted by: ED physician Normal ECG Interpretation: No acute ischemic changes X-Ray Chest Interpretation Chest Xray Interpretation: Impression: Cephalization. Changes consistent with mild CHF. View: Portable Interpretation / Wet Read by: Wet read ED physician Reviewed Previous Films: Findings are new Re-Eval/Medical Decision Source of Hx: Old records Re-Evaluation/Progress : Time of Eval: 00:57 Patient Status: Condition improved Re-Evaluation/Progress Note: Informed the patient and her daughter of the plan for hospital admission. Discussed the results of the chest x-ray, EKG, and labs. Patient understands and agrees with this plan. All questions were addressed. Consultation : Referral / Consult Name: Radha Griffiths DO Consulted With: Hospitalist Call Returned at: 01:17 Pasteurizer Helper: Will see patient, Agrees with eval, Agrees with plan, Accepts admit Note: Spoke with Dr. Griffiths, hospitalist, who agrees to accept admit. Counseled Regarding: Diagnosis, Lab results, Need for admission Patient Discharge & Departure Impression: Primary Impression: Elevated troponin Additional Impression: Dizziness Disposition: ADMITTED TO HOSPITAL Discharge Condition All VS Reviewed: Yes Condition: Stable Referrals: Laz Mccullough MD (PCP) Dale Attestation Portions of this note were transcribed by Smiley Galvez. I, Dr. Hamilton personally performed the history, physical exam and medical decision-making; I reviewed and confirmed the accuracy of the information in the transcribed note. Signed by: Dale Garcia, 08/29/2016212 Laz Mccullough MD, Rikki Lucas MD Aug 29, 2016 00:39 Smiley Galvez Aug 29, 2016 00:47
[2016-08-29] MEDS ORDERED: Alum-Mag Hydrox-Simeth 30 mL Suspension PO PRN ×2 (01:20→01:45)
[2016-08-29] MEDS ORDERED: Polyethylene Glycol (PEG) 17 Gm Powder PO PRN ×2 (01:20→01:45)
[2016-08-29] MEDS ORDERED: Ondansetron 2 mg/mL 2 mL Inj IVPUSH PRN ×2 (01:20→01:45)
--- NOTE | 2016-08-29 03:12 | NUR ---
ADMIT Patient admit for dizziness and bradycardia. Denies any pain. Daughter helped to answer questions. Patient is alert and oriented, but forgetful and hard of hearing. Oriented to room. Mepilex placed on bottom for PU prevention. Q2 turns, feet floated on pillows. Comfortably resting at this time.
[2016-08-29 04:33] LABS: APPEARANCE,URINE CLEAR (CLEAR,HAZY); COLOR,URINE YELLOW (YELLOW); OCCULT BLOOD,URINE NEGATIVE (NEGATIVE); UROBILINOGEN,URINE NORMAL (NORMAL)
--- NOTE | 2016-08-29 05:54 | PCM.HPMED ---
Subjective Date of Service Aug 29, 2016 Primary Provider: Admitting Physician: Radha Griffiths DO Primary Care Physician: aLz Mccullough MD Attending Physician: Radha Griffiths DO Admit Status: From the Emergency Department Chief Complaint: Dizziness History of Present Illness: Patient is a pleasant 85-year-old woman with known history of intermittent second-degree heart block, hypertension, presented to the [facility] emergency department complaining of intermittent dizziness past 2 weeks , tonight she felt her dizziness was so severe that she thought there was an earthquake in her house, the dizziness is not associated with lying down, sitting, patient does not stand, it is not reproduced with turning her head any particular direction. She denies any chest pain, shortness of breath, nausea, vomiting, diarrhea, she has swelling in her legs per her baseline. She is accompanied by her daughter who states that since her hospitalization 3 weeks ago she has been "getting better" but the last couple of days has not quite been herself and gives the example that she seems to have "laser vision" unless you are what she is focused on she will not acknowledge you. At her last hospitalization, she was found to have second-degree heart block and it was decided that a pacemaker was not indicated at the time. Her community relations police lieutenant is Dr. Aguirre. CBC: WC 4.1, hemoglobin 9.1, otherwise unremarkable. CMP mildly elevated BUN at 30. Otherwise unremarkable. Troponin 0.032. Urinalysis: Trace leukocyte esterase, 6-10 white blood cells, few epithelial cells, few bacteria. Heart rate 39, rhythm appears to be sinus, with occasional ventricular premature beats, axis is normal, AL intervals 218, QTC 449. Compared to EKG from 08/07/2016 there is an apparent change in rhythm, as well as changing clinical status. Automated reading "sinus bradycardia, PVCs, right bundle branch block, low voltage in the extremity leads." Change and previous as mentioned above. Chest Xray Interpretation: Impression: Cephalization. Changes consistent with mild CHF. Interpretation / Wet Read by: Wet read ED physician Review of Systems: Patient describes urinary retention, All other review of systems negative unless specified in history of present illness above. Allergies Coded Allergies: Penicillins (Verified Allergy, Intermediate, Hives, 08/28/16) aspirin (Verified Allergy, Intermediate, Rash, 08/28/16) Home Medications Tylenol when necessary as needed for pain PMH Hypertension GERD UTI Mild pancreatitis Surgical History Denies any previous surgeries Family History Denies any family history of stroke, heart attack, cancers. Social History Occupation: retired Hx Alcohol Use: No Hx Substance Use: No Hx Tobacco Use: No Smoking Status: Never Smoker Living Arrangement: with Family (lives with son) Exam Vital Signs Vital Sign - Last Date Time Temp Pulse Resp B/P Pulse Ox O2 Delivery O2 Flow Rate FiO2 08/29/16 03:24 Supplement Oxygen 08/29/16 02:41 40 153/59 148/74 08/28/16 23:30 35.4 14 97 Exam General: Laying in bed, obese no apparent distress. HEENT: Normocephalic, atraumatic, EOMI grossly, hard of hearing, right ear impacted cerumen unable to visualize TM, left ear TM clear without abnormality. Cardiovascular: Bradycardic, no clicks murmurs rubs, peripheral pulses 2/4 equal bilaterally Pulmonary: Clear to auscultation bilaterally, no W/R/R. Abdominal: Soft to palpation, bowel sounds present 4, no hepatosplenomegaly. Negative rebound. Extremities: 1 fingerbreadth pitting bilaterally, equal. No tenderness, asymmetry. Neuro: Neurologically grossly intact, strength is equal bilaterally upper and lower extremities. 5 out of 5 strength in the upper extremity, 45 strength to the lower extremities MSK: Able to move extremities on their own volition. Dizziness is not reproduced when patient is lying back and head is rotated passively to the right or left, there is no nystagmus. Lab and Diagnostics Result Diagram: 08/28/16 5605 08/28/16 2318 X-Rays, CTs and MRIs Awaiting official radiology report. ER physician's interpretation is in history of presenting illness 12-lead ECG See history of present illness Assessment & Plan 86-year-old woman with several days of intermittent dizziness, progressively worse, however resolved at time of evaluation, found to have elevated troponin, bradycardia, and EKG changes since the past month. #1 acute on chronic second-degree heart block, unstable. -Patient's EKG has shown progressively worsening bradycardia, presence of PVCs, patient has had symptoms of intermittent dizziness. Apparently previously evaluated as a candidate for pacemaker however was told that the risk did not outweigh the benefit by their primary care physician. Patient states that they were seen by Dr. Aguirre regarding cardiac health in the past. -Cardiology consult -Echocardiogram in the a.m. #2 acutely elevated troponin, present on admission, evaluation ongoing - Troponin mildly elevated at 0.3, potential causes or demand ischemia, NSTEMI. - Trend troponins every 4 hours - Unclear if patient is candidate for cardiac catheterization given the heart block, I will defer to cardiology. #3 acute Dizziness, present on admission, improving -[place] to be most likely cardiogenic in nature, however patient should be thoroughly evaluated for vestibular causes, modified [place]-Hallpike was performed was negative, patient does not convey any tinnitus or recent illness suggestive of Mnire's. -Consider ENT evaluation upon discharge as outpatient once cleared from a cardiogenic point of view. Additionally ENT physician would be apt to clean her cerumen impaction, again on an outpatient basis. #4 Acute urinary retention, present on admission, active. -bladder scans and in-out catheterization PRN. VTE prophylaxis Sub cutaneous Heparin Pain management with APAP PRN GI Prophylaxis not indicated. Pain Evaluation: Adequate Pain Control GI Prophylaxis: Not indicated VTE Prophylaxis: Sub-Q Heparin (Unfractionated) Resuscitation Status: CPR: Attempt Resuscitation Attending Statement The patient was seen and examined together with house staff on 08/29/2016 and I agree with the history, exam and plan as outlined in the note above. Sonny Olivares DO Aug 29, 2016 04:03 Radha Griffiths DO Aug 29, 2016 06:50
[2016-08-29 06:00] LABS: Magnesium 1.7 mg/dL (1.6-2.6)
--- NOTE | 2016-08-29 09:32 | DRSVH ---
PROCEDURE: X-RAY CHEST ONE VIEW, PORTABLE ([id number]) INDICATIONS: Dizziness TECHNIQUE: One view of the chest was acquired. COMPARISON: [facility], CR, XR CHEST 1VW (PORTABLE), 08/06/2016, 20:20. FINDINGS: Surgical changes and devices: None. Lungs and pleura: No pleural effusions or pneumothorax. Lungs are clear, aside from the medial biba silar airspace opacities. Mediastinum: Mediastinal contours appear normal. Heart size is normal. Bones and chest wall: No suspicious bony lesions. Overlying soft tissues appear unremarkable. IMPRESSION: Bibasilar atelectasis versus aspiration or pneumonia. Correlate clinically. Dictated by: Luis Carlos Olivas RRA Interpreted: Raiza Segura MD on 08/29/2016 at 9:31 Transcribed by: JAMILA on 08/29/2016 at 9:31 Approved by: Raiza Segura M.D. on 08/31/2016 at 16:03
[2016-08-29] MEDS: Heparin 5,000 Unit/mL Inj SUBQ SCH ×2 (09:54→16:56)
--- NOTE | 2016-08-29 11:45 | NUR ---
Transfer to [facility] Pt admitted in ER, waiting for hospital bed. Pt denied any pain or discomfort today, VSS. Report given to Lauren Feliciano RN. Patient transferred with all belongings to [facility], room 238-2, accompanied by daughter.
--- NOTE | 2016-08-29 12:17 | NUR ---
Admit transfer pt admitted to unit at 1150. Pt A&O, daughter Shanell at bedside. Denies pain or discomfort. Mepilex in place to coccyx. Heels floated. Tele placed. Weak and required x3 assist to BSC. oriented to room and call light. to monitor.
--- NOTE | 2016-08-29 17:43 | NUR ---
Status Pt being turned q2h, using bedpan as pt is weak up OOB. Calmoseptine to coccyx. Mepilex remains in place. Denies pain or discomfort. Daughter at bedside, assisting with 1:1 feeding.
--- NOTE | 2016-08-29 18:18 | NUR ---
HR/temp MD assessed pt at bedside 1745 . Assessed HR. Notified that only temporal temperature could be attained and was 35.4. Pt and daughter state this is the norm for pt, providers have had a lot of difficulty in past. MD to order antibitoic for UA results. To continue to monitor. Per MD, cardiology likely to see patient tomorrow.
[2016-08-29] MEDS: cefTRIAXone Inj 1,000 MG in Dextrose 5% Minibag Plus 50 ML IV SCH (19:28)
--- NOTE | 2016-08-29 19:47 | NUR ---
Case Management: ALEJANDRA explained to patient and her daughter Shanell at 1655, all questions answered. Signed original in chart, copy given to patient. I also provided "How Medicare Covers Self-Administered Drugs Given in Hospital Outpatient Settings". Leah Ruth RN
--- NOTE | 2016-08-29 22:11 | PCM.PNMED ---
Subjective Date of Service Aug 29, 2016 Exam Vital Signs Vital Sign - Last Date Time Temp Pulse Resp B/P Pulse Ox O2 Delivery O2 Flow Rate FiO2 08/29/16 18:10 35.4 57 20 144/59 94 Room Air Intake and Output 08/28/16 08/28/16 08/29/16 Cumulative From/Thru 15:00 23:00 07:00 08/28/16 23:30 - 08/29/16 04:30 Output Total 250 ml 250 ml Balance -250 ml -250 ml Output Urine Total 250 ml 250 ml Lab and Diagnostics Result Diagram: 08/28/16 2334 08/29/16 0510 Assessment & Plan H and P reviewed, agreed with assessment and plan. 86-year-old woman with several days of intermittent dizziness, progressively worse, however resolved at time of evaluation, found to have elevated troponin, bradycardia, and EKG changes since the past month. #1 acute on chronic second-degree heart block -Patient's EKG has shown progressively worsening bradycardia, presence of PVCs, patient has had symptoms of intermittent dizziness. Apparently previously evaluated as a candidate for pacemaker however was told that the risk did not outweigh the benefit by their primary care physician. Patient states that they were seen by Dr. Aguirre regarding cardiac health in the past. -Cardiology consultation obtained. Dr. Hunt notified, agreed to see patient. -Echocardiogram pending #2 elevated troponin of uncertain significance, present on admission, evaluation ongoing - Troponin mildly elevated at 0.3, potential causes or demand ischemia, NSTEMI. - Trend troponin every 4 hours - Unclear if patient is candidate for cardiac catheterization given the heart block #3 Dizziness, present on admission, improving -[place] to be most likely cardiogenic in nature, however patient should be thoroughly evaluated for vestibular causes, modified [place]-Hallpike was performed was negative, patient does not convey any tinnitus or recent illness suggestive of Mnire's. -Consider ENT evaluation upon discharge as outpatient once cleared from a cardiogenic point of view. Additionally ENT physician would be apt to clean her cerumen impaction, again on an outpatient basis. #4 Acute urinary retention, present on admission, active. -bladder scans and in-out catheterization PRN. VTE prophylaxis Sub cutaneous Heparin Pain management with APAP PRN GI Prophylaxis not indicated. GI Prophylaxis: Not indicated VTE Prophylaxis: Sub-Q Heparin (Unfractionated) Resuscitation Status: CPR: Attempt Resuscitation Attending Statement Read and agree. Pt mentation improved, pulse stable, increased. Rocephin X1 provided for possible UTI, culture pending. Payton Overton DO Aug 29, 2016 22:11 Terrence Mcgregor DO Aug 30, 2016 08:31
[2016-08-30] VITALS (9 sets, daily range): BP systolic 119–160; BP diastolic 59–82; PULSE 40–93; RESP 16–20; O2SAT 93–96
[2016-08-30] MEDS: Heparin 5,000 Unit/mL Inj SUBQ SCH ×3 (00:08→16:29)
--- NOTE | 2016-08-30 00:53 | NUR ---
Bladder Scan Pt voided 50ml at beginning of shift then at 0045 voided approximately 25mls. Bladder scan was obtained to check for retention which showed 81mls.
--- NOTE | 2016-08-30 06:38 | NUR ---
Mentation Pt thought people were in her room around 0200. Pt was reoriented and was AOX3 after. At 0545 pt began asking for her glasses on the wall. Not able to reorientate her and knew her name and but thought she was in [place] her [place] of [place].
[2016-08-30] MEDS: cefTRIAXone Inj 1,000 MG in Dextrose 5% Minibag Plus 50 ML IV SCH (08:01)
[2016-08-30 08:19] LABS: BASOPHILS % (AUTO) 0 % (0-3); EOSINOPHILS % (AUTO) 0.5 % (0-5); Mean Corpuscular Volume 98.2 fL (81-100); Platelet Count 149 bil/L (150-400)
--- NOTE | 2016-08-30 12:08 | PCM.PNMED ---
Subjective Date of Service Aug 30, 2016 Subjective no overnight event, pt denied "no earthquake", no lightheadedness, pt denied getting out of bed at baseline episode happened while she was in a bed. awaits cardiology eval for possible PPM insertion, Exam Vital Signs Vital Sign - Last Date Time Temp Pulse Resp B/P Pulse Ox O2 Delivery O2 Flow Rate FiO2 08/30/16 11:07 93 08/30/16 10:26 35.8 18 160/71 93 Room Air Intake and Output 08/29/16 08/29/16 08/30/16 Cumulative From/Thru 15:00 23:00 07:00 08/28/16 23:30 - 08/30/16 06:21 Intake Total 837 ml 160 ml 997 ml Output Total 375 ml 75 ml 700 ml Balance 462 ml 85 ml 297 ml Intake Oral 837 ml 100 ml 937 ml IV Total 60 ml 60 ml Output Urine Total 375 ml 75 ml 700 ml Exam elderly female, difficulty of hearing, comfortably laying down on the bed no JVD, MMM, no LAD RRR, nl s1, s2 no mrg CTAB, no w,c S,ND,NT,normoactive BS+ warm, no edema, pulses 2/2 IVs and Medications Medications Reviewed: Medications were reviewed in detail Lab and Diagnostics Result Diagram: 08/30/16 0808/30/16 08 Assessment & Plan 86-year-old woman with several days of intermittent dizziness, progressively worse, however resolved at time of evaluation, found to have elevated troponin, bradycardia, and EKG changes since the past month. #recurrent lightheadedness, POA, in the setting of known second-degree heart block -appreciate cardiology input, regarding PPM insertion, if not, will d/c with close FU with card -continue telemetry -Echocardiogram pending #mild troponemia, POA, plateaued and resolved, likely demand ischemia, no sig chg from prior hospitalization. #Acute urinary retention, present on admission, active. -bladder scans and in-out catheterization PRN. VTE prophylaxis Sub cutaneous Heparin Pain management with APAP PRN GI Prophylaxis not indicated. dispo: depends on cardiac assessment Full Code dvt ppx: HSQ diet: DASH GI Prophylaxis: Not indicated VTE Prophylaxis: Sub-Q Heparin (Unfractionated) Resuscitation Status: CPR: Attempt Resuscitation Time spent 35min Garrison Gunter MD Aug 30, 2016 12:08
--- NOTE | 2016-08-30 15:02 | NUR ---
spiritual care: pt request pt shared report of medical emergency and of her dtr's expected arrival this pm. drowsy. no specific needs identified, but spiritual care to follow for support
[2016-08-30 15:47] LABS: INR 0.94 ratio
--- NOTE | 2016-08-30 15:47 | NUR ---
Social Work Note - Initial Assessment: D/A: See Initial Assessment, the Pt is an 86 y/o female that was admitted under observation status for elevated troponin, dizzy. Her PCP is MD Laz Mccullough and her primary insurance is Medicare with a Combined INS [place] supplement, no LTC or VA benefits. Readmission score is 1. EMR reviewed, SW met with the Pt and her daughter to explain role and discuss discharge planning. The Pt lives in a mobile home with a ramp in [place] with her adult son who provides some assistance to the Pt regarding cooking and cleaning. The Pt does not have DPOA paperwork on file, paperwork given to the Pts daughter. The Pt does not drive, her daughter provides this service. This Pt is open with Varsha SCHROEDER (RN/PT/OT/DELIVER DRIVER) services, no SNF history reported. Pt discussed in rounds, Cardiology consult has been placed with the possibility of PPM insertion. Echo pending. Pt scheduled for possible pacemaker placement at 11am tomorrow. SW will continue to follow. P: The Pt is not medically stable for discharge, Cardiology consult placed with possible pacemaker placement scheduled for 08/31 at 11am. SW will continue to follow. LUIS DANIEL [employer] LUIS DANIEL Younger Addendum: 08/30/16 at 1547 by CHANTELL HOLLOWAY Amended: Links added. Addendum: 08/30/16 at 1626 by CHANTELL NAVA SW placed call to Varsha SCHROEDER to confirm disciplines, Pt is open with Varsha services. Varsha to return call regarding the specific disciplines involved. LUIS DANIEL [employer]
[2016-08-30] MEDS: Sodium Chloride LOK Flush 10 mL Syringe IVFLUSH SCH (16:10)
--- NOTE | 2016-08-30 17:57 | NUR ---
Cardiac/Bedrest Pt SB 30s-50 with 2nd degree AVB, per process control technician. Bubba Campbell in to consent patient for pacemaker placement tomorrow. Pt's daughter at bedside for consent and states all her questions were answered. Pt denies dizziness/CP. BP stable, afebrile, SpO2 mid-90s on RA. Q2H turns, meplex in place to coccyx. Uses bedpan to void, no BM today. Intermittently disoriented, thinks she is at home and that she could see her glasses across the room; reoriented easily and pt is able to hold a conversation, just a bit slow to respond. Denies pain/discomfort. Pulled out R hand IV, this RN replaced it in R FA and covered with andrew stocking to protect it. This RN placed second line in L FA, per Cardiology orders; this IV also covered with Oakley stocking to prevent pt from pulling at it. Both PIVs are 20guage.
[2016-08-31] VITALS (16 sets, daily range): BP systolic 86–154; BP diastolic 51–87; PULSE 54–86; RESP 14–20; O2SAT 90–97
[2016-08-31] MEDS: Sodium Chloride LOK Flush 10 mL Syringe IVFLUSH SCH ×3 (00:56→15:27)
[2016-08-31] MEDS: Heparin 5,000 Unit/mL Inj SUBQ SCH ×3 (00:58→17:03)
--- NOTE | 2016-08-31 01:05 | NUR ---
Mentation Intermittently disoriented as she thinks she is in [place] at home. Pt did not want 0030 dose of heparin and stated "she does not take insulin, my takes insulin." RN and ACCOUNTANT CERTIFIED PUBLIC attempted to reorient her, however was not successful.
[2016-08-31 07:42] LABS: BASOPHILS % (AUTO) 0.2 % (0-3); EOSINOPHILS % (AUTO) 0.5 % (0-5); MONOCYTES % (AUTO) 8.7 % (4-12); Mean Corpuscular Hemoglobin 31.6 pg (27.0-35.0); Mean Corpuscular Volume 97.3 fL (81-100); NEUTROPHILS % (AUTO) 78.3 % (40-74); Platelet Count 172 bil/L (150-400)
[2016-08-31 07:57] LABS: Magnesium 1.5 mg/dL (1.6-2.6); Phosphorus 3.3 mg/dL (2.5-4.9)
[2016-08-31] MEDS: cefTRIAXone Inj 1,000 MG in Dextrose 5% Minibag Plus 50 ML IV SCH (08:30)
[2016-08-31] MEDS ORDERED: Vancomycin 1,000mg/200 mL NS IV ONE (11:14)
[2016-08-31] MEDS ORDERED: Vancomycin Inj 1,000 MG in IV Premix 1 EACH IV ONE (11:30)
--- NOTE | 2016-08-31 11:37 | PCM.PNMED ---
Subjective Date of Service Aug 31, 2016 Subjective pt was confused overnight, easily oriented by daughter at the bedside. Exam Vital Signs Vital Sign - Last Date Time Temp Pulse Resp B/P Pulse Ox O2 Delivery O2 Flow Rate FiO2 08/31/16 10:10 36.5 56 18 128/73 95 Room Air 08/31/16 07:10 2.00 Intake and Output 08/30/16 08/30/16 08/31/16 Cumulative From/Thru 15:00 23:00 07:00 08/28/16 23:30 - 08/31/16 06:28 Intake Total 660 ml 1657 ml Output Total 1075 ml 1775 ml Balance -415 ml -118 ml Intake Oral 600 ml 1537 ml IV Total 60 ml 120 ml Output Urine Total 1075 ml 1775 ml Exam elderly female, difficulty of hearing, comfortably laying down on the bed no JVD, MMM, no LAD RRR, nl s1, s2 no mrg CTAB, no w,c S,ND,NT,normoactive BS+ warm, no edema, pulses 2/2 IVs and Medications Medications Reviewed: Medications were reviewed in detail Lab and Diagnostics Result Diagram: 08/31/1665408/31/16654 Assessment & Plan 86-year-old woman with several days of intermittent dizziness, progressively worse, however resolved at time of evaluation, found to have elevated troponin, bradycardia, and EKG changes since the past month. #recurrent lightheadedness, POA, in the setting of known second-degree heart block -PPM insertion today per cardiology, -continue telemetry #mild troponemia, POA, plateaued and resolved, likely demand ischemia, no sig chg from prior hospitalization. #Acute urinary retention, present on admission, active. -bladder scans and in-out catheterization PRN. VTE prophylaxis Sub cutaneous Heparin Pain management with APAP PRN GI Prophylaxis not indicated. dispo: depends on cardiac assessment Full Code dvt ppx: HSQ diet: DASH GI Prophylaxis: Not indicated VTE Prophylaxis: Sub-Q Heparin (Unfractionated) Resuscitation Status: CPR: Attempt Resuscitation Time spent 35min Garrison Gunter MD Aug 31, 2016 11:30
[2016-08-31] MEDS ORDERED: HYDROcodone-APAP 5-325 mg Tablet PO PRN (12:15)
--- NOTE | 2016-08-31 12:52 | PROG NOTE ---
[address] [address] PROGRESS NOTE PATIENT: GOLDEN QUIGLEY : 1930 MR#: [id number] ADMIT: 08/29/2016 JOB ID: [id number] DATE: 08/31/2016 IDENTIFICATION/HISTORY: The patient is a pleasant 86-year-old woman with a structurally normal heart who is otherwise healthy who presents to the hospital for the second time in the last few months with lightheadedness and near-syncope and is found to be in Mobitz II AV block. She has 2:1 AV block currently and feels like "an earthquake" is occurring. She denies any lisa syncope, chest pain, pressure, discomfort or dyspnea. No culprit medications are on board. As a matter of fact, she does not take any medications at home aside from Tylenol. Review of her EKG shows sinus rhythm with 2:1 AV block. DATE: IMPRESSION AND RECOMMENDATION: The patient is a pleasant 86-year-old woman with a structurally normal heart who presents with near-syncope and Mobitz II AV block. I recommended dual-chamber pacemaker implantation. We discussed the risks and benefits in detail in the presence of her daughter. Ultimately she wishes to proceed. PLAN: Dual-chamber pacemaker implantation. I spent approximately 45 minutes with this patient coordinating care. Greater than 50% of the time was spent in counseling.
--- NOTE | 2016-08-31 13:34 | OP ---
[address] [address] OPERATIVE REPORT PATIENT: GOLDEN QUIGLEY : 1930 MR#: [id number] ADMIT: 08/29/2016 JOB ID: [id number] DATE OF SURGERY: 08/31/2016 PREOPERATIVE DIAGNOSIS(ES): Mobitz II atrioventricular block. POSTOPERATIVE DIAGNOSIS(ES): Mobitz II atrioventricular block. PROCEDURES PERFORMED: 1. Dual-chamber pacemaker implantation. 2. Left upper extremity venogram. 3. Fluoroscopy. SURGEON: Julio César Lopez MD, electrophysiology attending. STABILIZER OPERATOR: Derrick Blanca. IMPLANTED DEVICES: 1. [employer] pulse generator model BU7785, serial #[id number]. 2. Right atrial lead [employer] 2088TC, 46 cm, serial #[id number]. 3. RV lead [employer] 2088TC, 52 cm, serial #[id number]. ANESTHESIA: Bolus dosing of Versed and fentanyl were utilized for appropriate level of sedation. INDICATION: The patient is a pleasant 86-year-old woman with a structurally normal heart who presents with Mobitz II AV block. After discussion of risks and benefits of pacemaker implantation, she opted to proceed. PROCEDURAL DESCRIPTION: Following informed signed consent, the patient was taken to the EP laboratory in a fasting, nonsedated state, where she was prepped and draped in the usual sterile fashion. A left upper extremity venogram was performed preoperative due to significant varicosities on her left chest wall. It appears that her left cephalic vein is occluded and has collateralized. The left deltopectoral groove was infiltrated with a 50/50 mixture of bupivacaine and lidocaine. Once adequate anesthesia had been achieved, a 2 cm incision was performed along the deltopectoral groove. Dissection was carried down to the pectoralis fascia. A pocket was then fashioned using combination of electrocautery and blunt dissection. Once adequate anesthesia had been achieved, access to the left axillary vein was obtained with a micropuncture needle under radiographic guidance to deploy two 0.035, 3 mm J guidewires. Over the first of these, a 6-Kiswahili tear-away sheath was advanced. Once the guidewire was removed, an active fixation lead was advanced to the RV outflow tract and ultimately the RV apex. The lead was affixed in position using associated fixation screw. It was connected to the external analyzer and demonstrated appropriately sensed R waves, impedance, capture threshold. It was checked to 10 V, and there was no evidence of diaphragmatic stimulation. Attention was now paid to the right atrial lead. Over the other previously deployed J guidewire, another 6-Kiswahili tear-away sheath was advanced. Once the guidewire was removed, an active fixation lead was advanced to the right atrial appendage. It was affixed in position using associated fixation screw. It was connected to the external analyzer and demonstrated appropriately sensed P waves, impedance, capture threshold. It was checked to 10 V, and there was no evidence of diaphragmatic stimulation. Once the position and redundancy of both leads had been confirmed in multiple fluoroscopic views, the leads were anchored to the prepectoralis fascia using their associated anchoring sleeves and 2-0 Ethibond sutures. The pocket was copiously irrigated with antibiotic solution. The leads were connected to a generator. The generator placed in the pocket. It was affixed to the floor of the pocket using 1-0 Ti-Cron suture. The incision was then closed with running layers of absorbable suture. The wound was dressed with skin adhesive and a small dressing. At the end of the procedure, the needle, sponge and instrument counts were all correct. COMPLICATIONS: None. ESTIMATED BLOOD LOSS: Negligible. DEVICE MEASURED DATA: 1. Right atrial lead 3.5 mV, 400 ohms, 0.75 V at 0.4 msec. 2. RV lead 5.2 mV, 600 ohms, 0.5 V at 0.4 msec. FINAL PROGRAM PARAMETERS: DDD 60-130 beats per minute. IMPRESSION: Successful dual-chamber pacemaker implantation. PLAN: 1. Stat portable chest x-ray. 2. PA and lateral chest x-ray in the morning. 3. Device interrogation in the morning. 4. IV vancomycin through tomorrow. 5. Doxycycline 100 mg p.o. daily x7 days starting tomorrow. 6. Wound check in one week. ATTENDING STATEMENT: Julio César Lopez MD, electrophysiology attending, was present for and supervised/performed all aspects of this procedure.
--- NOTE | 2016-08-31 14:23 | NUR ---
AMARILYS POST PACEMAKER PT RECEIVED FROM PUBLIC SERVICE REPRESENTATIVE AT 1240. LEFT UPPER CHEST DRSG C/D/I, ICE BAG APPLIED. POST EKG AND CXR WERE DONE. PT WAS INCONTINENT STOOL SO CAUSEY CATHETER ATTEMPT WAS CANCELED. COMPLETE BED CHANGE WAS DONE. PT DID VOID 200ML ON BEDPAN. SHE IS TAKING PO FLUIDS WITHOUT DIFFICULTY. PLAN TO TRANSFER TO ROOM 2021 AT 1440.
--- NOTE | 2016-08-31 15:13 | NUR ---
AMARIL[facility] TRANSFER PT AND HER NURSING CARE WERE TRANSFERRED TO ROOM 2021. BEDSIDE REPORT AND HANDOFF WAS DONE WITH DARRELL Islas RN. TELE CONFIRMED WITH [employer].
[2016-08-31] MEDS: 0.9% Sodium Chloride 1,000 ML IV SCH ×2 (15:26→22:13)
--- NOTE | 2016-08-31 16:04 | DRSVH ---
PROCEDURE: X-RAY CHEST ONE VIEW, PORTABLE ([id number]) INDICATIONS: For new leads placed TECHNIQUE: One view of the chest was acquired. COMPARISON: [facility], CR, XR CHEST 1VW (PORTABLE), 08/28/2016, 23:43. FINDINGS: Surgical changes and devices: Stable positioning of left cardiac pacer. Lungs and pleura: No pleural effusions or pneumothorax. Lungs are clear, aside from bibasilar airsp anish opacities.. Mediastinum: Mediastinal contours appear normal. Heart size is normal. Bones and chest wall: No suspicious bony lesions. Overlying soft tissues appear unremarkable. IMPRESSION: No immediate complications status post cardiac pacemaker placement. Bibasilar atelectasis versus aspiration or pneumonia. Correlate clinically. Dictated by: Luis Carlos Olivas [facility] Interpreted: Vanessa Camp MD on 08/31/2016 at 16:03 Transcribed by: MICHAELLE on 08/31/2016 at 16:04 Approved by: Vanessa Camp MD, PhD on 08/31/2016 at 17:08
--- NOTE | 2016-08-31 17:24 | NUR ---
From [facility] Received patient from [facility] around 1500. Left chest dressing CDI. Patient groggy and confused, not answering questions. As evening progressed, patient more awake, but still confused. Daughter at bedside to help with orientation. Patient is noted to be weak, not moving self much in bed. Noted that patient lists to the left which daughter states is not new. Drooling on occasion which is also not new. Keeping left arm still at this point, but will apply sling with next brief change. Patient voided in [facility] prior to coming to floor. Questioning whether patient is retaining urine. Plan is to bladder scan if no further voiding. Patient denies discomfort. Denies pain. Vitals stable. RA, 96% Lungs decreased in bases. Tele shows 100% v paced in MCL lead. SR in lead 2. Rate 79.
--- NOTE | 2016-08-31 18:00 | NUR ---
Incontinent Patient is incontinent of urine and stool. Skin was checked under Mepilex on sacrum and skin looked fine there, mepilex dcd. Bottoms is red around anus, so calmoseptine was applied.
--- NOTE | 2016-08-31 18:15 | NUR ---
Left arm sling applied.
--- NOTE | 2016-08-31 18:20 | NUR ---
Case Management: IMM explained to patient and daughter at 1745, all questions answered. Signed original in chart, copy given to patient's daughter. Heriberto Palmer RN Addendum: 08/31/16 at 1825 by HERIBERTO PALMER Correction: I provided IMM at 1725, not 1745. Heriberto Palmer RN
[2016-09-01] VITALS (7 sets, daily range): BP systolic 115–158; BP diastolic 65–80; PULSE 68–84; RESP 14–17; O2SAT 94–96
[2016-09-01] MEDS ORDERED: Vancomycin Inj 1,000 MG in IV Premix 1 EACH IV ONE (00:15)
[2016-09-01] MEDS: Sodium Chloride LOK Flush 10 mL Syringe IVFLUSH SCH ×3 (00:37→16:33)
[2016-09-01] MEDS: Heparin 5,000 Unit/mL Inj SUBQ SCH ×3 (00:37→16:30)
[2016-09-01 05:08] LABS: BASOPHILS % (AUTO) 0.2 % (0-3); EOSINOPHILS % (AUTO) 0.7 % (0-5); MONOCYTES % (AUTO) 9.4 % (4-12); Mean Corpuscular Hemoglobin 32.1 pg (27.0-35.0); Mean Corpuscular Volume 96.7 fL (81-100); NEUTROPHILS % (AUTO) 80.9 % (40-74); Platelet Count 172 bil/L (150-400)
[2016-09-01 05:33] LABS: Magnesium 1.5 mg/dL (1.6-2.6); Phosphorus 3.9 mg/dL (2.5-4.9)
[2016-09-01] MEDS: cefTRIAXone Inj 1,000 MG in Dextrose 5% Minibag Plus 50 ML IV SCH (08:08)
[2016-09-01] MEDS: 0.9% Sodium Chloride 1,000 ML IV SCH ×2 (08:09→21:13)
--- NOTE | 2016-09-01 08:53 | DRSVH ---
PROCEDURE: X-RAY CHEST ONE VIEW, PORTABLE ([id number]) INDICATIONS: For new lead placement TECHNIQUE: One view of the chest was acquired. COMPARISON: [facility], CR, XR CHEST 1VW (PORTABLE), 08/31/2016, 13:11. FINDINGS: Surgical changes and devices: Stable position of dual chamber left cardiac pacer. Lungs and pleura: No pleural effusions or pneumothorax. Bibasilar airspace opacities unchanged, lef t greater than right. Small left pleural effusion. Mediastinum: Mediastinal contours appear normal. Heart size is normal. Bones and chest wall: No suspicious bony lesions. Overlying soft tissues appear unremarkable. IMPRESSION: 1. Stable appearance of left cardiac pacemaker. 2. Bibasilar atelectasis versus aspiration or pneumonia unchanged. 3. Small pleural effusion. Dictated by: Luis Carlos SALAS Interpreted: Kourtney Cao MD on 09/01/2016 at 8:52 Transcribed by: KELTON on 09/01/2016 at 8:53 Approved by: Kourtney Cao M.D. on 09/01/2016 at 17:14
[2016-09-01] MEDS ORDERED: Magnesium Sulf 4 Gm/100 mL H2O 4 GM in IV Premix 1 EACH IV ONE ×2 (17:30→20:35)
--- NOTE | 2016-09-01 18:07 | NUR ---
AMS The pt was somulent and unarousable until 1700. At that time, she was answering some questions appropriately, but was overall still very confused and would fall asleep easily. MD's are aware, and are frequently rounding. No clear answer as to why the AMS is occurring. The pt is currently awake with her daughter in the room, but is still confused.
--- NOTE | 2016-09-01 19:31 | PCM.PNMED ---
Subjective Date of Service Sep 01, 2016 Subjective Overnight: No acute events Today: Nurses informed me that the patient has been sleeping all day including when the family came into the room and were vigorously attempting to arouse the patient. Upon entering the room the patient was somnolent but able to open both eyes and interact. She denies any pain currently. She does not attribute any fever or chills, nausea vomiting, trouble with urination or stooling. Exam Vital Signs Vital Sign - Last Date Time Temp Pulse Resp B/P Pulse Ox O2 Delivery O2 Flow Rate FiO2 09/01/16 08:00 80 09/01/16 08:00 36.4 141/80 95 Room Air 09/01/16 04:10 16 08/31/16 07:10 2.00 Intake and Output 08/31/16 08/31/16 09/01/16 Cumulative From/Thru 15:00 23:00 07:00 08/28/16 23:30 - 09/01/16 06:23 Intake Total 520 ml 700 ml 275 ml 3152 ml Output Total 200 ml 250 ml 50 ml 2275 ml Balance 320 ml 450 ml 225 ml 877 ml Intake Oral 520 ml 700 ml 75 ml 2832 ml IV Total 200 ml 320 ml Output Urine Total 200 ml 250 ml 50 ml 2275 ml # Voids 2 2 Exam General: Somnolent elderly female Laying in bed, sleeping no apparent distress. Oriented to self, believing it is 08/08/2016, location [facility] Psych: Patient remains slightly paranoid stating do not touch her several times , stating "your hands are dirty" until visibly seen washing Neuro: Patient is extremely uncooperative with neuro exam however appears to move all extremities spontaneously and tracks well. Speech is often slurred and relatively disorganized however appears tangential from what I can understand. Observed patient tracking with horizontal eye movement without nystagmus as well as vertical extraocular motion without most HEENT: Normocephalic, atraumatic, moist mucous membranes without central cyanosis, external ears without defect Cardiovascular: Regular rate and rhythm, no clicks murmurs rubs, peripheral pulses 2/4 equal bilaterally Pulmonary: Clear to auscultation bilaterally, no W/R/R. patient has a 4 cm incision in her left anterior chest consistent with new pacer placement Abdominal: Soft to palpation, bowel sounds present 4, no hepatosplenomegaly. Negative rebound. Extremities: 1+ pitting edema bilaterally in the lower extremities up to the knee, equal. No cyanosis or clubbing MSK: Able to move fingers and toes on her own volition, however limited movement most notably in her lower extremities : No Betancourt in place Lab and Diagnostics Result Diagram: 09/01/1644109/01/16441 X-Rays, CTs and MRIs PROCEDURE: X-RAY CHEST ONE VIEW, PORTABLE ([id number]) IMPRESSION: 1. Stable appearance of left cardiac pacemaker. 2. Bibasilar atelectasis versus aspiration or pneumonia unchanged. 3. Small pleural effusion. Dictated by: Luis Carlos Olivas RRA Interpreted: Kourtney Cao MD on 09/01/2016 at 8:52 Transcribed by: KELTON on 09/01/2016 at 8:53 Approved by: Kourtney Cao M.D. on 09/01/2016 at 17:14 Assessment & Plan 86-year-old woman with several days of intermittent dizziness, progressively worse, however resolved at time of evaluation, found to have elevated troponin, bradycardia, and EKG changes since the past month. 1. Altered mental status, not present on admission, under evaluation - Considered most likely include delirium due to administration of narcotics and sedatives given the patient was relatively somnolent - Urinalysis for possible infectious sources pending however unlikely given Procalcitonin and negative - I discussed today with the patient's daughter who is stated that her mother became quite delirious at her last hospitalization in July for urinary tract infection - Daughter has agreed to stay overnight to reorient the patient in the event that she is unable to sleep - Avoid further sedating agents in the future, Tylenol for pain, melatonin for sleep 2 acute on chronic second-degree heart block, present on admission, stable treated -Patient's EKG had shown progressively worsening bradycardia, presence of PVCs, patient has had symptoms of intermittent dizziness. Apparently previously evaluated as a candidate for pacemaker however was told that the risk did not outweigh the benefit by their primary care physician. Patient states that they were seen by Dr. Aguirre regarding cardiac health in the past. - Cardiology consultation obtained. With dual-chamber cardiac pacer placement on 08/31/2016 - Cardiology to perform Device interrogation prior to discharge - IV vancomycin through 09/01/2016 - Doxycycline 100 mg p.o. daily x7 days starting 09/01/2016 through 09/07/2016 - Wound check in one week. 3 elevated troponin of uncertain significance, present on admission, evaluation ongoing - Troponin mildly elevated at 0.3 at admission, potential causes include likely demand ischemia due to arrhythmia - Troponins trended to negative - Cardiology consulted 4 Dizziness, present on admission, considered stable -[place] to be most likely cardiogenic in nature, however patient should be thoroughly evaluated for vestibular causes, modified [place]-Hallpike was performed was negative, patient does not convey any tinnitus or recent illness suggestive of Mnire's. -Consider ENT evaluation upon discharge as outpatient once cleared from a cardiogenic point of view. Additionally ENT physician would be apt to clean her cerumen impaction, again on an outpatient basis. 5 Acute urinary retention, present on admission, active. -bladder scans and in-out catheterization PRN. 6. Normocytic anemia, present on admission, under evaluation stable - Etiology uncertain given normocytic, likely compound - Anemia panel in the morning checking - Microscopic stool occult blood ordered VTE prophylaxis Sub cutaneous Heparin Pain management avoid further narcotics or benzodiazepine sedatives GI Prophylaxis not indicated. dispo: depends on cardiac assessment Full Code: Discussed with patient's daughter, full code in accordance to her mother's wishes dvt ppx: HSQ diet: DASH GI Prophylaxis: Not indicated VTE Prophylaxis: Sub-Q Heparin (Unfractionated) Resuscitation Status: CPR: Attempt Resuscitation Attending Statement The patient was seen and examined together with Dr. Arora on 09/01/2016 and I agree with the history, exam and plan as outlined in the note above. . Pierre Arora DO Sep 01, 2016 12:33 Kenji Tate MD Sep 02, 2016 14:27
[2016-09-02] VITALS (9 sets, daily range): BP systolic 114–139; BP diastolic 66–82; PULSE 68–99; RESP 12–18; O2SAT 90–96
[2016-09-02] MEDS: Heparin 5,000 Unit/mL Inj SUBQ SCH ×3 (01:57→16:30)
[2016-09-02] MEDS: Sodium Chloride LOK Flush 10 mL Syringe IVFLUSH SCH ×3 (01:58→17:09)
--- NOTE | 2016-09-02 06:06 | NUR ---
Mentation Patient arousable to voice, oriented to self and daughter. Daughter at bedside all night. Patient easily confused during care, difficult to reorient. Continue to monitor.
[2016-09-02 06:17] LABS: BASOPHILS % (AUTO) 0.4 % (0-3); EOSINOPHILS % (AUTO) 2.2 % (0-5); Mean Corpuscular Hemoglobin 31.8 pg (27.0-35.0); Mean Corpuscular Volume 97.8 fL (81-100); NEUTROPHILS % (AUTO) 71.8 % (40-74); Platelet Count 178 bil/L (150-400)
[2016-09-02 07:10] LABS: Magnesium 2.4 mg/dL (1.6-2.6); Phosphorus 3.7 mg/dL (2.5-4.9); Unsaturated Iron Binding 194.6 ug/dL
[2016-09-02] MEDS: cefTRIAXone Inj 1,000 MG in Dextrose 5% Minibag Plus 50 ML IV SCH (07:52)
[2016-09-02] MEDS: 0.9% Sodium Chloride 1,000 ML IV SCH ×2 (07:52→14:13)
--- NOTE | 2016-09-02 09:21 | DRSVH ---
PROCEDURE: X-RAY CHEST ONE VIEW, PORTABLE ([id number]) INDICATIONS: worsening oxygen saturation ARF TECHNIQUE: One view of the chest was acquired. COMPARISON: [facility], CR, XR CHEST 1VW (PORTABLE), 09/01/2016, 5:16. FINDINGS: Surgical changes and devices: Dual-lead cardiac pacer Lungs and pleura: Possible small left pleural effusion. No definite right pleural effusions or pneumo thorax. Retrocardiac consolidation is present. Background scarring/atelectasis. Mediastinum: Mediastinal contours appear normal. Heart size is normal. Bones and chest wall: No suspicious bony lesions. Overlying soft tissues appear unremarkable. IMPRESSION: Retrocardiac consolidation suggesting aspiration/atelectasis or pneumonia this may be stable to mildl y worsened since yesterday. Please correlate clinically. Dictated by: Justino Hope M.D. on 09/02/2016 at 9:17 Approved by: Justino Hope M.D. on 09/02/2016 at 9:19
--- NOTE | 2016-09-02 11:43 | NUR ---
Evaluation completed. Please go to "Notes" then click on "Assessments and Notes" (bottom left corner of screen). Then select appropriate discipline tab on top of screen.
--- NOTE | 2016-09-02 11:47 | NUR ---
Social Work: Readiness for Discharge D: Pt discussed in am rounds. Pt's mentation is improving however still not back to baseline cognition. Pt also requiring ST and PT evaluation. Anticipate pt to d/c tomorrow. At baseline pt is w/c bound but I with transfers. Pt was not able to fully transition herself to w/c during evaluation. Pt also demonstrating max assist for bed mobility and maintaining seated upright balance. At this time, recommendation is for SNF however if pt progresses with PT may be able to go home with 24/7 care from family and resumed [facility]. CULLET CRUSHER AND WASHER met with pt's family at bedside to review this plan. They strongly feel that a skilled rehab facility is not the best option for the pt and hope that she will continue to progress with PT and go home with [facility]. Pt lives at home with her son who provides caregiving. CULLET CRUSHER AND WASHER explained medical necessity and that pt cannot rehab at [facility]. They understand that if pt is not able to transfer to her w/c by time of discharge she will need to consider a SNF. SNF CHOICE LIST PROVIDED. [facility]ference [facility] for either [facility] or [facility] [place] to build strength and mobility improvement. Referral sent to both. Access provided. PPW on chart. PASSR completed. Family encouraged by CULLET CRUSHER AND WASHER and MD to get pt OOB and to chair for meals and to keep her awake throughout the day. They agree. A: Pt who is w/c bound at baseline. P: Anticipate pt to likely progress and return home with [facility]; if not [facility] and [facility] are reviewing for possible SNF admission/ LUIS DANIEL Azar
--- NOTE | 2016-09-02 12:01 | NUR ---
[facility] Signed
--- NOTE | 2016-09-02 14:11 | PCM.PNMED ---
Subjective Date of Service Sep 02, 2016 Subjective Overnight: Nursing reports the patient remained delirious overnight and difficult to reorient. No acute events otherwise noted today: The patient denies any pain. She states that she feels better. The daughter at the bedside states that the patient looks and is acting better. The daughter would not want her mother going to a group home given her delirium in unfamiliar places. The daughter states that she was feeding her mother eggs and she seemed to struggle with swallowing, however she was able to swallow pudding without issue. Exam Vital Signs Vital Sign - Last Date Time Temp Pulse Resp B/P Pulse Ox O2 Delivery O2 Flow Rate FiO2 09/02/16 06:06 87 09/02/16 03:44 36.9 15 118/66 90 Room Air 08/31/16 07:10 2.00 Intake and Output 09/01/16 09/01/16 09/02/16 Cumulative From/Thru 15:00 23:00 07:00 08/28/16 23:30 - 09/02/16 06:25 Intake Total 339 ml 970 ml 4461 ml Output Total 2 ml 2277 ml Balance 339 ml 968 ml 2184 ml Intake Oral 200 ml 100 ml 3132 ml IV Total 139 ml 870 ml 1329 ml Output Urine Total 2 ml 2277 ml # Voids 5 7 # Bowel Movements 0 0 Exam General: Somnolent elderly female Laying in bed, sleeping no apparent distress. Awoken Oriented to self, knows it is 2016 and troponin is the president, disoriented to city and build Psych: Patient less paranoid today with her daughter at Bedside. Flat affect Neuro: Grossly neurologically intact. Speech is less slurred and improving as day goes, answers were appropriate less tangential. Observed patient tracking with horizontal eye movement without nystagmus as well as vertical extraocular motion without most HEENT: Normocephalic, atraumatic, moist mucous membranes without central cyanosis, external ears without defect Cardiovascular: Regular rate and rhythm, no clicks murmurs rubs, peripheral pulses 2/4 equal bilaterally Pulmonary: Clear to auscultation bilaterally, no W/R/R. patient has a 4 cm incision in her left anterior chest consistent with new pacer placement Abdominal: Soft to palpation, bowel sounds present 4, no hepatosplenomegaly. Negative rebound. Extremities: 1+ pitting edema bilaterally in the lower extremities up to the knee, equal. No cyanosis or clubbing MSK: Able to move fingers and toes on her own volition, however limited movement most notably in her lower extremities : No Betancourt in place Lab and Diagnostics Result Diagram: 09/02/1650909/02/16509 X-Rays, CTs and MRIs PROCEDURE: X-RAY CHEST ONE VIEW, PORTABLE ([id number]) IMPRESSION: 1. Stable appearance of left cardiac pacemaker. 2. Bibasilar atelectasis versus aspiration or pneumonia unchanged. 3. Small pleural effusion. Dictated by: Luis Carlos Olivas RRA Interpreted: Kourtney Cao MD on 09/01/2016 at 8:52 Transcribed by: KELTON on 09/01/2016 at 8:53 Approved by: Kourtney Cao M.D. on 09/01/2016 at 17:14 Assessment & Plan 86-year-old woman with several days of intermittent dizziness, progressively worse, however resolved at time of evaluation, found to have elevated troponin, bradycardia, and EKG changes since the past month. Hospital day 5 1. Altered mental status, not present on admission, under evaluation - Considered most likely include delirium due to prior administration of narcotics and sedatives for surgery given the patient was relatively somnolent yesterday and improving today, other possibilities include surgical antibiotics clearing an undiagnosed infection - Urinalysis for possible infectious sources grew out mixed urogenital zhen urinary tract infection considered unlikely unlikely given Procalcitonin also negative - discussed with the patient's daughter who is stated that her mother became quite delirious at her last hospitalization in July for urinary tract infection - Daughter has agreed to stay overnight to reorient the patient in the event that she is unable to sleep - Avoid further sedating agents in the future, Tylenol for pain, melatonin for sleep 2 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 Apparently previously evaluated as a candidate for pacemaker however was told that the risk did not outweigh the benefit by their primary care physician. Patient states that they were seen by Dr. Aguirre regarding cardiac health in the past. - Cardiology consultation obtained. With dual-chamber cardiac pacer placement on 08/31/2016 - Cardiology to perform Device interrogation prior to discharge - IV vancomycin through 09/01/2016 - Doxycycline 100 mg p.o. daily x7 days starting 09/01/2016 through 09/07/2016 - Wound check in one week. 3 elevated troponin of uncertain significance, present on admission, evaluation ongoing - Troponin mildly elevated at 0.3 at admission, potential causes include likely demand ischemia due to arrhythmia - Troponins trended to negative - Cardiology consulted 4 Dizziness, present on admission, considered stable -[place] to be most likely cardiogenic in nature, however patient should be thoroughly evaluated for vestibular causes, modified [place]-Hallpike was performed was negative, patient does not convey any tinnitus or recent illness suggestive of Mnire's. -Consider ENT evaluation upon discharge as outpatient once cleared from a cardiogenic point of view. Additionally ENT physician would be apt to clean her cerumen impaction, again on an outpatient basis. 5 Acute urinary retention, present on admission, active. - bladder scans and in-out catheterization PRN. 6. Normocytic anemia, present on admission, under evaluation stable - Etiology anemia of chronic disease given low TIBC elevated ferritin - Microscopic stool occult blood ordered VTE prophylaxis Sub cutaneous Heparin Pain management avoid further narcotics or benzodiazepine sedatives GI Prophylaxis not indicated. dispo: depends on cardiac assessment Full Code: Discussed with patient's daughter, full code in accordance to her mother's wishes dvt ppx: HSQ diet: DASH Pain Evaluation: Adequate Pain Control GI Prophylaxis: H2 raghavendra VTE Prophylaxis: Sub-Q Heparin (Unfractionated) Resuscitation Status: CPR: Attempt Resuscitation Attending Statement The patient was seen and examined together with Dr. Arora on 09/02/2016 and I agree with the history, exam and plan as outlined in the note above. . Pierre Arora DO Sep 02, 2016 07:35 Kenji Tate MD Sep 04, 2016 09:40
--- NOTE | 2016-09-02 17:44 | NUR ---
Mentation/POC The pt had greatly improved mentation from yesterday. She is arousable to voice, and is alert to self and daughter. She occasionally is able to verbalize accurately where she is, and an approx date. No evidence of a neurologic event. The pt has been changed to a soft diet following a speech eval, and is a max assist per PT report. The POC is to transfer the pt to [facility] for rehab tomorrow.
[2016-09-03] VITALS (8 sets, daily range): BP systolic 106–118; BP diastolic 54–69; PULSE 75–100; RESP 12–22; O2SAT 92–96
[2016-09-03] MEDS: 0.9% Sodium Chloride 1,000 ML IV SCH ×3 (00:13→19:52)
[2016-09-03] MEDS: Sodium Chloride LOK Flush 10 mL Syringe IVFLUSH SCH ×3 (00:14→16:58)
[2016-09-03] MEDS: Heparin 5,000 Unit/mL Inj SUBQ SCH ×3 (00:59→16:30)
[2016-09-03 05:10] LABS: BASOPHILS % (AUTO) 0.2 % (0-3); EOSINOPHILS % (AUTO) 1.5 % (0-5); Mean Corpuscular Hemoglobin 31.8 pg (27.0-35.0); Mean Corpuscular Volume 96.4 fL (81-100); NEUTROPHILS % (AUTO) 69.7 % (40-74); Platelet Count 193 bil/L (150-400)
--- NOTE | 2016-09-03 06:09 | NUR ---
Rest Patient had a restful evening and remained safely in bed. Patient denied pain and reported minimal needs throughout the shift.
--- NOTE | 2016-09-03 14:43 | PCM.PNMED ---
Subjective Date of Service Sep 03, 2016 Subjective Patient is more awake today and able to answer some questions. She is not in any discomfort. Her breathing does not feeling short. She denies nausea and vomiting. She would like to eat her lunch. Overnight, she slept well and there were no major events. Exam Vital Signs Vital Sign - Last Date Time Temp Pulse Resp B/P Pulse Ox O2 Delivery O2 Flow Rate FiO2 09/03/16 11:58 36.8 90 20 118/69 93 Room Air 08/31/16 07:10 2.00 Intake and Output 09/02/16 09/02/16 09/03/16 Cumulative From/Thru 15:00 23:00 07:00 08/28/16 23:30 - 09/03/16 06:51 Intake Total 250 ml 771 ml 5482 ml Output Total 2 ml 2279 ml Balance 248 ml 771 ml 3203 ml Intake Oral 250 ml 100 ml 3482 ml IV Total 671 ml 2000 ml Output Urine Total 2 ml 2279 ml # Voids 1 8 # Bowel Movements 0 0 Exam General: Somnolent elderly female Laying in bed, no apparent distress, oriented to self HEENT: Normocephalic, atraumatic, moist mucous membranes; Observed patient tracking with horizontal eye movement without nystagmus, EOMI, PERRLA Cardiovascular: Regular rate and rhythm, no clicks murmurs rubs. Pulmonary: Clear to auscultation bilaterally. Patient has a 4 cm incision in her left anterior chest consistent with new pacer placement Abdominal: Soft to palpation, bowel sounds present 4, non tender, non-distended Extremities: 1+ pitting edema bilaterally in the lower extremities up to the knee, equal. No cyanosis or clubbing Peripheral pulses 2/4 equal bilaterally MSK: Able to move fingers and toes on her own volition, however limited movement most notably in her lower extremities : No Betancourt in place Psych: Patient not paranoid today, flat affect Neuro: Grossly neurologically intact. Speech clear, answers questions appropriately. IVs and Medications Medications Reviewed: Medications were reviewed in detail Lab and Diagnostics Result Diagram: 09/03/1644909/03/16449 X-Rays, CTs and MRIs PROCEDURE: X-RAY CHEST ONE VIEW, PORTABLE ([id number]) IMPRESSION: 1. Stable appearance of left cardiac pacemaker. 2. Bibasilar atelectasis versus aspiration or pneumonia unchanged. 3. Small pleural effusion. Dictated by: Luis Carlos Olivas RRA Interpreted: Kourtney Cao MD on 09/01/2016 at 8:52 Transcribed by: KELTON on 09/01/2016 at 8:53 Assessment & Plan 86-year-old woman with several days of intermittent dizziness, progressively worse, however resolved at time of evaluation, found to have elevated troponin, bradycardia, and EKG changes since the past month. Hospital day 6 1. Encephalopathy of uncertain origin, not present on admission, improved. - Considered most likely include delirium due to prior administration of narcotics and sedatives for surgery given the patient was relatively somnolent yesterday and improving today, other possibilities include surgical antibiotics clearing an undiagnosed infection - While patient is improving, encourage family to be present to reorient the patient to her current surroundings. This especially important at night. - Avoid further sedating agents in the future, Tylenol for pain, melatonin for sleep. - Encourage patient to get out of bed. Continue working with physical therapy. 2. 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 - Cardiology consultation obtained. With dual-chamber cardiac pacer placement on 08/31/[address] Lopez. - Dr. Aguirre reports that the device appears to be working well today. May need one more interrogation prior to discharge. - Doxycycline 100 mg p.o. daily x7 days starting 09/01/2016 through 09/07/2016 - Wound check outpatient in one week. 3. Elevated troponin of uncertain significance, present on admission, resolved. - Troponin mildly elevated at 0.3 at admission, potential causes include likely demand ischemia due to arrhythmia. 4. Dizziness, present on admission, presume stable. - [place] to be most likely cardiogenic in nature, however patient should be thoroughly evaluated for vestibular causes, modified [place]-Hallpike was performed was negative, patient does not convey any tinnitus or recent illness suggestive of Mnire's. - Patient has been doing well since pacemaker placed but could consider ENT evaluation upon discharge as outpatient once cleared from a cardiogenic point of view. Additionally ENT physician would be apt to clean her cerumen impaction , again on an outpatient basis. 5. Acute urinary retention, present on admission, improved. - Bladder scans and in-out catheterization PRN. 6. Normocytic anemia, present on admission, stable. - Etiology anemia of chronic disease given low TIBC elevated ferritin - Stable over course of admission. - Continue to monitor BMP. - Bowel regimen available PRN. - Tylenol available PRN mild pain or fever. - Antiemetic available PRN. Disposition: Likely discharge tomorrow to SNF. GI Prophylaxis: H2 raghavendra VTE Prophylaxis: Sub-Q Heparin (Unfractionated) VTE Mechanical Devices: Intermittant Pneumatic CD Resuscitation Status: CPR: Attempt Resuscitation Attending Statement The patient was seen and examined together with Dr. Fletcher on 09/03/2016 and I agree with the history, exam and plan as outlined in the note above. . Leigh Fletcher DO Sep 03, 2016 14:43 Kenji Tate MD Sep 04, 2016 09:41
--- NOTE | 2016-09-03 15:33 | NUR ---
[facility] with [facility]
--- NOTE | 2016-09-03 15:34 | NUR ---
Social Work: Continued Discharge Planning D: Pt discussed in am rounds. Pt is now requiring cardiology consult to determine if pt's pacer is working correctly. Pending outcome of consult, pt may be ready for discharge in 1-2 days. believes pt may require a palliative care consult. SPRAY CEMENTER spoke with pt's daughter at bedside. Pt is still not showing improvement towards returning towards her previous level of functioning. Daughter was previously very resistant to SNF however now believes that this may be the most appropriate setting for the pt given her sharp decline in functional status. Her preference is for [facility] and [facility] as a backup. Both facilities have accepted the pt. PPW and PASSR completed. A: Pt who is w/c bound at baseline. P: Anticipate pt to discharge to skilled rehab when clinically appropriate; [facility] with [facility] follow and [facility] has accepted. LUIS DANIEL Azar
--- NOTE | 2016-09-03 20:31 | NUR ---
CARE TRANSFER ASSUMED CARE FROM [facility]. VERBAL REPORT. COMMUNICATED TO DAUGHTER AND PATIENT. NO NEEDS AT THIS TIME.
[2016-09-04 00:30] VITALS: BP 111/44; PULSE 81; RESP 20; O2SAT 94
[2016-09-04] MEDS: Sodium Chloride LOK Flush 10 mL Syringe IVFLUSH SCH ×2 (00:39→08:43)
[2016-09-04] MEDS: Heparin 5,000 Unit/mL Inj SUBQ SCH ×2 (00:39→08:44)
[2016-09-04 04:27] VITALS: BP 116/70; PULSE 79; RESP 20; O2SAT 92
--- NOTE | 2016-09-04 05:06 | NUR ---
activity patient turned every 2 hours for optimal skin care. brief changed at regular intervals. patient's legs are very stiff. patient is reluctant to turn. bridged hips.care ongoing. daughter at bedside.
[2016-09-04 05:29] LABS: BASOPHILS % (AUTO) 0.3 % (0-3); EOSINOPHILS % (AUTO) 2.8 % (0-5); MONOCYTES % (AUTO) 13.7 % (4-12); Mean Corpuscular Hemoglobin 31.7 pg (27.0-35.0); Mean Corpuscular Volume 98.1 fL (81-100); NEUTROPHILS % (AUTO) 66.2 % (40-74); Platelet Count 207 bil/L (150-400)
[2016-09-04 05:48] LABS: Magnesium 1.7 mg/dL (1.6-2.6); Phosphorus 3.9 mg/dL (2.5-4.9)
[2016-09-04] MEDS: 0.9% Sodium Chloride 1,000 ML IV SCH (06:13)
[2016-09-04 08:02] VITALS: BP 119/70; PULSE 70; O2SAT 91
[2016-09-04] MEDS ORDERED: Magnesium Sulf 2 Gm/50mL Water 2 GM in IV Premix 1 EACH IV ONE (09:15)
[2016-09-04 10:34] VITALS: PULSE 70
[2016-09-04 12:22] VITALS: BP 116/54; PULSE 60; RESP 16; O2SAT 94
[2016-09-04] MEDS ORDERED: DOXY100T2 PO (14:33)
[2016-09-04] MEDS ORDERED: SACC250C PO (14:33)
--- NOTE | 2016-09-04 14:48 | PCM.DIMED ---
Pierre Arora DO 09/04/16 1448: Discharge Instructions Date of Service Sep 04, 2016 Dates of Hospitalization Aug 29, 2016 at 11:30 Discharge Diagnosis Discharge Diagnosis 1. Encephalopathy of uncertain origin 2. 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 Elevated troponin of uncertain significance 4. Dizziness 5. Acute urinary retention 6. anemia Medication Instructions You will be prescribed and oral antibiotic Doxycycline that your burnisher and bumper would like for you to take until your wound check later this week. We will also start you on a probiotic which will help replace the intestinal zhen which has been lost since you started your antibiotic. You will also be sent with a melatonin sleep aid to be taken before bedtime for insomnia. This medication will help restore your normal sleep wake cycle. Diet Heart Healthy Activity Other ([facility] physical therapy) Call your provider Fever or Chills, Shortness of breath, Bleeding, Chest pain, Vomitting, Excessive diarrhea, Other (dizziness) Patient Instructions Please continue to take your antibiotics and probiotic pills. You will need to follow up with your burnisher and bumper by September 08, 2016 for evaluation of the pacer incision site. Please try and get plenty of rest and exercise. You will need to regain some strength that you lost over the course of your hospitalization since your surgery. Please avoid excessive napping during the day as it is important you get plenty of continuous sleep during the night to regain your strength and return home. Follow-up plan You will need to follow up with the cardiology department one week after your heart pacer placement for a wound check. Please follow up with your PCP after discharge from [facility] for further evaluation of your overall health and medication checks. Follow-up Provider: Laz Mccullough MD Follow-up with PCP in: 2 weeks Mid-level Provider (F9): Dale Acosta PA-C Follow-up with Mid-level in: Other (by 09/08 for wound check) Fili Crenshaw MD 09/05/16 1515: Discharge Instructions Attending's Statement The patient was seen and examined together with Dr. Arora on 09-04-16 and I agree with the history, exam and plan as outlined in the note above. Pierre Arora DO Sep 04, 2016 14:48 Fili Crenshaw MD Sep 05, 2016 15:15
[2016-09-04] MEDS ORDERED: MELA1TAB9 PO (14:52)
--- NOTE | 2016-09-04 16:14 | NUR ---
Social Work Note: Discharge Data& Assessment: EMR reviewed. Per pt is medically ready to discharge to [facility] via wheelchair van arranged by SNF. Cate Bingham is a 86 year old female admitted on 08/29/2016 for elevated troponin and dizziness. Per pt is medically improved and ready for discharge. SW met with pt and pt daughter Ghislaine at bedside to confirm discharge plan and assess for any unmet. Pt and pt daughter. confirm preference is for [facility]. [facility] confirmed that they have a bed next to a window to accommodate pt request. Pt and pt daughter deny any other needs. [facility] arranged for wheelchair van cotton picker operator for 3:30p.m. RN notified. All updated and agreeable to plan. No other discharge needs identified. Plan: Per pt is medically ready to discharge to [facility] via wheelchair van arranged by SNF. Pt and pt daughter notified and agreeable to plan. RN notified. All updated and agreeable to plan. No other discharge needs identified. LUIS DANIEL Self
--- NOTE | 2016-09-04 16:20 | NUR ---
Discharge Pt discharged to [facility] today at 16:15. Pt off floor via wheelchair with all belongings in the company of the transportation staff and her daughter. Packet sent with pt. Report called to [facility].
--- NOTE | 2016-09-04 20:47 | PCM.PNMED ---
Subjective Date of Service Sep 04, 2016 Subjective overnight: no acute events today: Patient will be discharged to [facility] for rehabilitation and hopefully return to baseline. Daughter and patient have no questions. Exam Vital Signs Vital Sign - Last Date Time Temp Pulse Resp B/P Pulse Ox O2 Delivery O2 Flow Rate FiO2 09/04/16 04:27 37.0 79 20 116/70 92 Room Air 09/03/16 19:24 4.00 Intake and Output 09/03/16 09/03/16 09/04/16 Cumulative From/Thru 15:00 23:00 07:00 08/28/16 23:30 - 09/04/16 06:04 Intake Total 1149 ml 300 ml 6931 ml Output Total 3 ml 2282 ml Balance 1146 ml 300 ml 4649 ml Intake Oral 638 ml 200 ml 4320 ml IV Total 511 ml 100 ml 2611 ml Output Urine Total 3 ml 2282 ml # Voids 3 11 # Bowel Movements 0 0 0 Exam General: elderly female Laying in bed with her daughter at Bedside., in no apparent distress. Oriented to self, knows it is 2016 and Stephon Bahena is the president, disoriented to city and build Psych: Patient not paranoid today, flat affect normal mood Neuro: Grossly neurologically intact. Speech is less slurred and improving as day goes, answers were appropriate. HEENT: Normocephalic, atraumatic, moist mucous membranes without central cyanosis, external ears without defect Cardiovascular: Regular rate and rhythm, no clicks murmurs rubs, peripheral pulses 2/4 equal bilaterally Pulmonary: Clear to auscultation bilaterally, no W/R/R. patient has a 4 cm incision in her left anterior chest consistent with new pacer placement Abdominal: Soft to palpation, bowel sounds present 4, no hepatosplenomegaly. Negative rebound. Extremities: 1+ pitting edema bilaterally in the lower extremities up to the knee, equal. No cyanosis or clubbing MSK: Able to move all extremities, patient remains weak, requiring assistance all ADLs except feeding : No Betancourt in place Lab and Diagnostics Result Diagram: 09/04/16 0500 09/04/16 0500 X-Rays, CTs and MRIs PROCEDURE: X-RAY CHEST ONE VIEW, PORTABLE ([id number]) IMPRESSION: 1. Stable appearance of left cardiac pacemaker. 2. Bibasilar atelectasis versus aspiration or pneumonia unchanged. 3. Small pleural effusion. Dictated by: Luis Carlos Olivas RRA Interpreted: Kourtney Cao MD on 09/01/2016 at 8:52 Transcribed by: KELTON on 09/01/2016 at 8:53 Assessment & Plan 86-year-old woman with several days of intermittent dizziness, progressively worse, however resolved at time of evaluation, found to have elevated troponin, bradycardia, and EKG changes since the past month. Hospital day 6 1. Encephalopathy of uncertain origin, not present on admission, improved. - patient to be discharge to [facility] for rehabilitation - Considered most likely include delirium due to prior administration of narcotics and sedatives for surgery given the patient was relatively somnolent yesterday and improving today, other possibilities include surgical antibiotics clearing an undiagnosed infection - patient is improving daily, patient likely needs more activity and interaction available at [facility] - Avoid further sedating agents in the future, Tylenol for pain, melatonin for sleep. - Encourage patient to get out of bed. Continue working with physical therapy. 2. 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 - Cardiology consultation obtained. With dual-chamber cardiac pacer placement on 08/31/[address] Lopez. - Dr. Aguirre reports that the device appears to be working well today. - Doxycycline 100 mg p.o. daily x7 days starting 09/01/2016 through 09/07/2016 - Wound check outpatient one week after pacer placement. 3. Elevated troponin of uncertain significance, present on admission, resolved. - Troponin mildly elevated at 0.3 at admission, potential causes include likely demand ischemia due to arrhythmia. 4. Dizziness, present on admission, presume stable. - [place] to be most likely cardiogenic in nature, however patient should be thoroughly evaluated for vestibular causes, modified [place]-Hallpike was performed was negative, patient does not convey any tinnitus or recent illness suggestive of Mnire's. - Patient has been doing well since pacemaker placed but could consider ENT evaluation upon discharge as outpatient once cleared from a cardiogenic point of view. Additionally ENT physician would be apt to clean her cerumen impaction , again on an outpatient basis. 5. Acute urinary retention, present on admission, improved. - Bladder scans and in-out catheterization PRN. 6. Normocytic anemia, present on admission, stable. - Etiology anemia of chronic disease given low TIBC elevated ferritin - Stable over course of admission.. - Bowel regimen available PRN. - Tylenol available PRN mild pain or fever. - Antiemetic available PRN. Disposition: discharge today to [facility] for SNF rehabilitation. GI Prophylaxis: H2 raghavendra VTE Prophylaxis: Sub-Q Heparin (Unfractionated) VTE Mechanical Devices: Intermittant Pneumatic CD Resuscitation Status: CPR: Attempt Resuscitation Attending Statement The patient was seen and examined together with Dr. Arora on 09-04-16 and I agree with the history, exam and plan as outlined in the note above. Pierre Arora DO Sep 04, 2016 07:47 Fili Crenshaw MD Sep 05, 2016 15:16
--- NOTE | 2016-09-04 20:52 | PCM.DC.MED ---
Discharge Summary Date of Service Sep 04, 2016 Dates of Hospitalization Date of Hospital Admission Aug 29, 2016 at 11:30 Date of Discharge: Sep 04, 2016 Providers: Admitting Physician: Radha Griffiths DO Primary Care Physician: Laz Mccullough MD Attending Physician: Radha Griffiths DO Diagnosis at Time of Discharge Diagnosis at Time of Discharge 1. Encephalopathy of uncertain origin 2. 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 Elevated troponin of uncertain significance 4. Dizziness 5. Acute urinary retention 6. anemia Consultations cardiology Procedures XRay, CTs & MRIs PROCEDURE: X-RAY CHEST ONE VIEW, PORTABLE ([id number]) IMPRESSION: 1. Stable appearance of left cardiac pacemaker. 2. Bibasilar atelectasis versus aspiration or pneumonia unchanged. 3. Small pleural effusion. Dictated by: Luis Carlos Olivas RRA Interpreted: Kourtney Cao MD on 09/01/2016 at 8:52 Transcribed by: KELTON on 09/01/2016 at 8:53 Invasive Procedures OPERATIVE REPORT IMPLANTED DEVICES: 1. [employer] pulse generator model NT6111, serial #[id number]. 2. Right atrial lead [employer] 2088TC, 46 cm, serial #[id number]. 3. RV lead [employer] 2088TC, 52 cm, serial #[id number]. IMPRESSION: Successful dual-chamber pacemaker implantation. ATTENDING STATEMENT: Julio César Lopez MD, electrophysiology attending, was present for and supervised/performed all aspects of this procedure. Julio César Lopez MD 08/31/16 1222 Brief History from the [facility] "Patient is a pleasant 85-year-old woman with known history of intermittent second-degree heart block, hypertension, presented to the [facility] emergency department complaining of intermittent dizziness past 2 weeks , tonight she felt her dizziness was so severe that she thought there was an earthquake in her house, the dizziness is not associated with lying down, sitting, patient does not stand, it is not reproduced with turning her head any particular direction. She denies any chest pain, shortness of breath, nausea, vomiting, diarrhea, she has swelling in her legs per her baseline. She is accompanied by her daughter who states that since her hospitalization 3 weeks ago she has been "getting better" but the last couple of days has not quite been herself and gives the example that she seems to have "laser vision" unless you are what she is focused on she will not acknowledge you. At her last hospitalization, she was found to have second-degree heart block and it was decided that a pacemaker was not indicated at the time. Her tankman is Dr. Aguirre. CBC: WC 4.1, hemoglobin 9.1, otherwise unremarkable. CMP mildly elevated BUN at 30. Otherwise unremarkable. Troponin 0.032. Urinalysis: Trace leukocyte esterase, 6-10 white blood cells, few epithelial cells, few bacteria. Heart rate 39, rhythm appears to be sinus, with occasional ventricular premature beats, axis is normal, [place] intervals 218, QTC 449. Compared to EKG from 08/07/2016 there is an apparent change in rhythm, as well as changing clinical status. Automated reading "sinus bradycardia, PVCs, right bundle branch block, low voltage in the extremity leads." Change and previous as mentioned above. Chest Xray Interpretation: Impression: Cephalization. Changes consistent with mild CHF. Interpretation / Wet Read by: Wet read ED physician" Hospital Course 86-year-old woman with several days of intermittent dizziness, progressively worse, however resolved at time of evaluation, found to have elevated troponin, bradycardia, and EKG changes since the past month. Hospital day 6 1. Encephalopathy of uncertain origin, not present on admission, improved. - patient to be discharge to [facility] for rehabilitation - Considered most likely include delirium due to prior administration of narcotics and sedatives for surgery given the patient was relatively somnolent yesterday and improving today, other possibilities include surgical antibiotics clearing an undiagnosed infection - patient is improving daily, patient likely needs more activity and interaction available at [facility] - Avoid further sedating agents in the future, Tylenol for pain, melatonin for sleep. - Encourage patient to get out of bed. Continue working with physical therapy. 2. 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 - Cardiology consultation obtained. With dual-chamber cardiac pacer placement on 08/31/[address] Lopez. - Dr. Aguirre reports that the device appears to be working well today. - Doxycycline 100 mg p.o. daily x7 days starting 09/01/2016 through 09/07/2016 - Wound check outpatient one week after pacer placement. 3. Elevated troponin of uncertain significance, present on admission, resolved. - Troponin mildly elevated at 0.3 at admission, potential causes include likely demand ischemia due to arrhythmia. 4. Dizziness, present on admission, presume stable. - [place] to be most likely cardiogenic in nature, however patient should be thoroughly evaluated for vestibular causes, modified [place]-Hallpike was performed was negative, patient does not convey any tinnitus or recent illness suggestive of Mnire's. - Patient has been doing well since pacemaker placed but could consider ENT evaluation upon discharge as outpatient once cleared from a cardiogenic point of view. Additionally ENT physician would be apt to clean her cerumen impaction , again on an outpatient basis. 5. Acute urinary retention, present on admission, improved. - Bladder scans and in-out catheterization PRN. 6. Normocytic anemia, present on admission, stable. - Etiology anemia of chronic disease given low TIBC elevated ferritin - Stable over course of admission.. - Bowel regimen available PRN. - Tylenol available PRN mild pain or fever. - Antiemetic available PRN. Disposition: discharge today to [facility] for SNF rehabilitation. Exam Vital Signs (Last) Date Time Temp Pulse Resp B/P Pulse Ox O2 Delivery O2 Flow Rate FiO2 09/04/16 12:22 36.6 60 16 116/54 94 Room Air 09/03/16 19:24 4.00 Exam General: elderly female Laying in bed with her daughter at Bedside., in no apparent distress. Oriented to self, knows it is 2016 and Stephon Bahena is the president, disoriented to city and build Psych: Patient not paranoid today, flat affect normal mood Neuro: Grossly neurologically intact. Speech is less slurred and improving as day goes, answers were appropriate. HEENT: Normocephalic, atraumatic, moist mucous membranes without central cyanosis, external ears without defect Cardiovascular: Regular rate and rhythm, no clicks murmurs rubs, peripheral pulses 2/4 equal bilaterally Pulmonary: Clear to auscultation bilaterally, no W/R/R. patient has a 4 cm incision in her left anterior chest consistent with new pacer placement Abdominal: Soft to palpation, bowel sounds present 4, no hepatosplenomegaly. Negative rebound. Extremities: 1+ pitting edema bilaterally in the lower extremities up to the knee, equal. No cyanosis or clubbing MSK: Able to move all extremities, patient remains weak, requiring assistance all ADLs except feeding : No Betancourt in place Test 08/28/16 23:34 08/29/16 04:00 08/29/16 20:30 08/30/16 15:00 Band Neutrophils % 0% (1-5) Urine Color Yellow (YELLOW) Urine Appearance Clear (CLEAR,HAZY) Urine pH 5.0 (5.0-8.0) Urine Specific Agar 1.025 (1.003-1.035) Urine Protein Negativemg/dL (NEG,TRACE) Urine Glucose (UA) Negativemg/dL (NEGATIVE) Urine Ketones Negativemg/dL (NEGATIVE) Urine Occult Blood Negative (NEGATIVE) Urine Nitrite Negative (NEGATIVE) Urine Bilirubin Negative (NEGATIVE) Urine Urobilinogen Normalmg/dL (NORMAL) Urine Leukocyte Esterase Trace (NEGATIVE) Urine RBC 0-2/hpf (0-2) Urine WBC 6-10/hpf (0-5) Urine Epithelial Cells Few/hpf (NONE-MOD) Urine Crystals None seen (NONE SEEN) Urine Bacteria Few/hpf (NONE-FEW) Urine Hyaline Casts None/lpf (NONE) Urine Granular Casts None seen (NONE SEEN) Urine Waxy Casts None seen (NONE SEEN) Urine Red Blood Cell Casts None seen (NONE SEEN) Urine White Blood Cell Casts None seen (NONE SEEN) Urine Mucus Present (None Seen) Urine Trichomonas None seen (NONE SEEN) Urine Yeast None (NONE SEEN) Urinalysis Comment None Urine Culture Reflexed Indicated Troponin T 0.010ug/L (0.0-0.011) Prothrombin Time 10.0sec (8.1-12.5) Prothromb Time International Ratio 0.94ratio Test 09/02/16 05:10 09/02/16 05:45 09/03/16 04:50 09/04/16 05:00 Reticulocyte Count,Calculated 1.7% (0.6-2.6) Ionized Calcium 1.18mmol/L (1.17-1.32) Iron Level 41ug/dL (35-150) Total Iron Binding Capacity 236ug/dL (250-450) Percent Iron Saturation 17%sat (15-50) Unsaturated Iron Binding 194.6ug/dL Ferritin 398ng/mL (13-150) Pro-B-Type Natriuretic Peptide 1691pg/mL (0-738) Thyroid Stimulating Hormone (TSH) 1.640uIU/mL (0.450-4.500) Procalcitonin 0.07ng/mL (0.00-0.08) Total Bilirubin 0.2mg/dL (0.0-1.2) Aspartate Amino Transf (AST/SGOT) 18U/L (0-50) Alanine Aminotransferase (ALT/SGPT) 14U/L (0-32) Alkaline Phosphatase 131U/L (25-165) Total Protein 5.5g/dL (6.4-8.4) Albumin 2.6g/dL (3.4-5.0) White Blood Count 5.8th/mm3 (3.8-10.1) Red Blood Count 2.62mil/mm3 (3.90-5.20) Hemoglobin 8.3g/dL (12.0-15.6) Hematocrit 25.7% (35.0-46.0) Mean Corpuscular Volume 98.1fL (81-100) Mean Corpuscular Hemoglobin 31.7pg (27.0-35.0) Mean Corpuscular Hemoglobin Concent 32.3% (32.0-37.0) Red Cell Distribution Width 13.7% (12.3-15.4) Platelet Count 207bil/L (150-400) Neutrophils (%) (Auto) 66.2% (40-74) Lymphocytes (%) (Auto) 16.5% (14-46) Monocytes (%) (Auto) 13.7% (4-12) Eosinophils (%) (Auto) 2.8% (0-5) Basophils (%) (Auto) 0.3% (0-3) Sodium Level 136mEq/L (134-144) Potassium Level 4.2mEq/L (3.5-5.2) Chloride Level 104mEq/L (97-108) Carbon Dioxide Level 18mmol/L (18-29) Blood Urea Nitrogen 26mg/dL (8-27) Creatinine 1.02mg/dL (0.57-1.00) Estimat Glomerular Filtration Rate 73mL/min (>59) Glucose Level 93mg/dL (60-99) Calcium Level 8.7mg/dL (8.5-10.1) Phosphorus Level 3.9mg/dL (2.5-4.9) Magnesium Level 1.7mg/dL (1.6-2.6) Discharge Medications Discharge Medications ([otc eye vitamins]) Unknown Strength Unknown Dose PO BID (Reported) Doxycycline Hyclate (Doxycycline Hyclate) 100 Mg Tablet 100 MG PO BID Prescribed by: ARTURO ZHU DO Saccharomyces Boulardii (Florastor) 250 Mg Capsule 250 MG PO BID Prescribed by: ARTURO ZHU DO As needed Acetaminophen (Acetaminophen) 325 Mg Tablet 325 MG PO TID PRN PRN For Pain ( Reported) Melatonin (Melatonin) 1 Mg Tablet 1 MG PO HS PRN PRN Insomnia Prescribed by: ARTURO ZHU DO Additional med instructions You will be prescribed and oral antibiotic Doxycycline that your tankman would like for you to take until your wound check later this week. We will also start you on a probiotic which will help replace the intestinal zhen which has been lost since you started your antibiotic. You will also be sent with a melatonin sleep aid to be taken before bedtime for insomnia. This medication will help restore your normal sleep wake cycle. Followup Plan Disposition: to [facility] Follow-up plan You will need to follow up with the cardiology department one week after your heart pacer placement for a wound check. Please follow up with your PCP after discharge from [facility] for further evaluation of your overall health and medication checks. Discharge Diet: Heart Healthy Discharge Activity: Other ([facility] physical therapy) Patient Instructions Please continue to take your antibiotics and probiotic pills. You will need to follow up with your tankman by September 08, 2016 for evaluation of the pacer incision site. Please try and get plenty of rest and exercise. You will need to regain some strength that you lost over the course of your hospitalization since your surgery. Please avoid excessive napping during the day as it is important you get plenty of continuous sleep during the night to regain your strength and return home. Follow-up Provider: Laz Mccullough MD Follow-up with PCP in: 2 weeks Mid-level Provider: Dale Acosta PA-C Follow-up with Mid-level in: Other (by 09/08 for wound check) Attending Statement The patient was seen and examined together with Dr. Zhu on 09-04-16 and I agree with the history, exam and plan as outlined in the note above. copies to: Laz Mccullough MD, Nicholas K DO Sep 04, 2016 20:51 Fili Crenshaw MD Sep 05, 2016 15:22
== END 2016-09-04 16:08 | DRG 242 ==
LOC: SED 22:53 → EDBD 22:53 → UNDOADMOB 08-29 01:04 → OFED 08-29 01:04 → MOC 08-29 11:30 → OBSVTOIN 08-29 11:30 → PCC 08-31 12:49
PROVIDERS: ADMIT Internal Medicine; ATTEND Internal Medicine
PROC: 0JH606Z Insertion of Pacemaker, Dual Chamber into Chest Subcutaneous Tissue and Fascia, Open Approach (ICD-10-PCS; principal; 2016-08-31)
PROC: 02H63JZ Insertion of Pacemaker Lead into Right Atrium, Percutaneous Approach (ICD-10-PCS; 2016-08-31)
PROC: 02HK3JZ Insertion of Pacemaker Lead into Right Ventricle, Percutaneous Approach (ICD-10-PCS; 2016-08-31)
DX: I44.1 Atrioventricular block, second degree (principal); G93.40 Encephalopathy, unspecified; I24.8 Other forms of acute ischemic heart disease; R33.9 Retention of urine, unspecified; I10 Essential (primary) hypertension; R42 Dizziness and giddiness; D63.8 Anemia in other chronic diseases classified elsewhere